=== PATIENT | male | born 1950 | race African-American/Black ===

== ENCOUNTER 2019-11-21 11:47 | Outpatient (REF) | payer MEDICARE, MEDICAID, SELFPAY ==
[2019-11-21 12:28] LABS: Hemoglobin 18.9 g/dl (14.0-18.0); Mean Corpuscular HGB Conc 32.6 g/dl (31.0-36.0); Mean Corpuscular Hemoglobin 29.1 pg (27.0-33.0); Mean Corpuscular Volume 89.2 fL (80-98); Mean Platelet Volume 9.7 fL (9.4-12.4); Platelet Count 300 X10*3/uL (160-400); Red Cell Distribution Width 15.8 % (11.0-16.0); White Blood Count 6.5 X10*3/uL (4.8-10.8)
[2019-11-21 12:39] LABS: Estimated Average Glucose 123 mg/dL; Hemoglobin A1c % 5.9 %
[2019-11-21 12:52] LABS: Alanine Aminotransferase 19 U/L (0-40); Albumin Level 4.3 g/dL (3.5-5.0); Alkaline Phosphatase 94 U/L (39-117); Anion Gap 11 (12-20); Aspartate Amino Transferase 24 U/L (5-37); Bilirubin Direct 0.2 mg/dL (0.0-0.5); Bilirubin Total 0.4 mg/dL (0.0-1.0); Blood Urea Nitrogen 10 mg/dL (9-16); Calcium 9.6 mg/dL (8.4-10.2); Carbon Dioxide 28 mmol/L (22-29); Chloride 99 mmol/L (96-108); Estimated Glomerular Filt Rate > 60; Glucose Random 102 mg/dL (60-115); Potassium 4.1 mmol/l (3.3-5.1); Sodium 134 mmol/L (135-145); Total Protein 8.2 g/dL (6.5-8.0)
== END 2019-11-21 11:48 | disposition home or self-care (01) ==
LOC: HO.LAB 11:47
PROVIDERS: Internal Medicine
DX: I10 Essential (primary) hypertension (principal); R20.2 Paresthesia of skin
CPT/HCPCS: 36415; 80048; 80076; 83036; 85027

== ENCOUNTER 2019-12-08 11:27 | Emergency (ER) | payer MEDICARE, MEDICAID, SELFPAY ==
[2019-12-08 11:36] VITALS: BP 191/101; PULSE 98; RESP 16; TEMP 37.1; O2SAT 97; BMI 22.3
--- NOTE | 2019-12-08 11:53 | ED_ITS ---
HPI - Male Genitourinary General Chief complaint: Urogenital-Male Stated complaint: RASH Time Seen by Provider: 12/08/19 11:41 Source: patient Mode of arrival: ambulatory Limitations: no limitations History of Present Illness HPI Narrative: Patient comes to emergency room complaining of a rash around the glans. Patient states it is not itchy, does not hurt. Patient states that he only has 1 sexual partner, but he is not sure if he has contracted any sexually transmitted diseases from her. Patient denies any penile discharge, no fever, no dysuria. Related Data Home Medications Medication Instructions Recorded Confirmed amlodipine 5 mg tablet 7.5 mg PO DAILY 11/21/19 ibuprofen 600 mg tablet 600 mg PO DAILY 11/21/19 risperidone 3 mg tablet 3 mg PO BEDTIME 11/21/19 trazodone 100 mg tablet 100 mg PO BEDTIME PRN 11/21/19 Previous Rx's Medication Instructions Recorded clotrimazole 1 applic TOPICAL TID #15 g 12/08/19 Allergies Allergy/AdvReac Type Severity Reaction Status Date / Time No Known Allergies Allergy Verified 11/21/19 09:14 [No Known Allergies*] Review of Systems Review of Systems: Constitutional : No Weight loss, No Fever, No Chills, No Night Sweats, No Fatigue, No Malaise ENT/Mouth : No Hearing loss, No Ear Pain, No Nasal Congestion, No Sinus Pain, No Hoarseness, No sore throat, No Rhinorrhea, No Swallowing Difficulty Eyes: No Eye Pain, No Swelling, No Redness, No Foreign Body, No Discharge, No Vision Changes Cardiovascular : No Chest Pain, No SOB, No Dyspnea on Exertion, No Orthopnea, No Edema, No Palpitations Respiratory : No Cough, No Sputum, No Wheezing, No Smoke Exposure, No Dyspnea Gastrointestinal : No Nausea, No Vomiting, No Diarrhea, No Constipation, No abdominal Pain, No Hematochezia, No Melena Genitourinary : No Dysuria, No Urinary Frequency, No Hematuria, No Urinary Incontinence, No Urgency, No Flank Pain, No Urinary Flow Changes, No Hesitancy Musculoskeletal : No joint pain, No Myalgias, No Joint Swelling Skin : rash around glands Neuro : No Weakness, No Numbness, No Paresthesias, No Loss of Consciousness, No Dizziness, No Headache Psych : No Anxiety/Panic, No Depression, No SI/HI/AH/VH, No Social Issues, Heme/Lymph: No Bruising, No Bleeding,No Lymphadenopathy Endocrine : No Polyuria, No Polydipsia, No Temperature Intolerance [facility] Past Medical History Medical History Hypertension Paresthesia of bilateral legs Surgical History History of back surgery History of oral surgery Family History Family History (Updated 11/21/19 @ 09:18 by Rosemary Barger [facility]) Father Chronic mental illness Depression Mother Depression Chronic mental illness Brother Stroke Sister S/P mastectomy Breast cancer screening by mammogram Social History Social History (Updated 11/21/19 @ 11:09 by Quincy Garcia William) Smoking Status: Former smoker Advance Directives: No Advance Directives Information Provided: No Physical Exam Vital Signs: Vital Signs: Vital Signs Temp Pulse Resp BP Pulse Ox 12/08/19 11:36 98.8 F 98 16 191/101 H 97 Body Mass Index 22.3 Appearance: Alert. Oriented X3. No acute distress. Eyes: Pupils equal, round and reactive to light. ENT: Pharynx normal. Neck: Normal inspection. Neck supple. No lymph nodes noted. No crepitus CVS: Normal heart rate and rhythm. Pulses normal. Normal S1 and S2 Respiratory: No respiratory distress. Breath sounds normal. No Wheezing. No rales Abdomen: Soft and nontender. No rigidity. No distention. good BS x4 : erythematous rash around the glans, no vesicles, no discharge from the tip of the penis Skin: Skin warm and dry. Normal skin color. Normal skin turgor. Extremities: No lower extremity edema. No lower extremity edema. No Lacerations. No Rash Neuro: Oriented X 3. No motor deficit. No sensory deficit. Moving all extermities. No slurred speech. Course Course Course Narrative: I discussed the physical exam with the patient, it seems that the patient's rash is likely a fungal infection. Urine will be sent for gonorrhea and chlamydia. Patient also complaining of bilateral 2nd toe pain. On physical exam, his toes are within normal limits, pedal pulses 5/5 bilaterally, no concern with vascular disease at the moment. Discharge Plan Discharge Clinical Impression: Candidiasis of penis Patient Disposition: Home, Self-Care Instructions: Yeast Infection (ED) Additional Instructions: Please follow-up with your primary care physician tomorrow. If you have any worsening or new symptoms, please return to the emergency room or call 911 Prescriptions: New clotrimazole 1 % cream 1 applic topical TID Qty: 15 RF: 0 No Action trazodone 100 mg tablet 100 mg PO BEDTIME PRNRF: 0 risperidone 3 mg tablet 3 mg PO BEDTIME RF: 0 amlodipine 5 mg tablet 7.5 mg PO DAILY RF: 0 ibuprofen 600 mg tablet 600 mg PO DAILY RF: 0
== END 2019-12-08 12:27 | disposition home or self-care (01) ==
PROVIDERS: Emergency Provider Emergency Medicine
DX: B37.42 Candidal balanitis (principal); N48.89 Other specified disorders of penis; Z87.891 Personal history of nicotine dependence; Z79.899 Other long term (current) drug therapy; Z20.2 Contact with and (suspected) exposure to infections with a predominantly sexual mode of transmission
CPT/HCPCS: 99283

== ENCOUNTER 2019-12-20 10:15 | Outpatient (REF) | payer MEDICARE, MEDICAID, SELFPAY | END 2019-12-20 10:16 | disposition home or self-care (01) | LOC: HO.BBR 10:15 | PROVIDERS: Visit Provider Internal Medicine Medical Oncology | DX: D75.1 Secondary polycythemia (principal) | CPT/HCPCS: 85014; 85018; 99195 ==

== ENCOUNTER 2020-01-17 10:55 | Outpatient (REF) | payer MEDICARE, MEDICAID, SELFPAY | END 2020-01-17 10:56 | disposition home or self-care (01) | LOC: HO.BBR 10:55 | PROVIDERS: Visit Provider Internal Medicine Medical Oncology | DX: D75.1 Secondary polycythemia (principal) | CPT/HCPCS: 36415; 85018; 99195 ==

== ENCOUNTER 2020-02-14 10:59 | Outpatient (REF) | payer MEDICARE, MEDICAID, SELFPAY | END 2020-02-14 11:00 | disposition home or self-care (01) | LOC: HO.BBR 10:59 | PROVIDERS: Visit Provider Internal Medicine Medical Oncology | DX: D75.1 Secondary polycythemia (principal) | CPT/HCPCS: 85014; 85018; 99195 ==

== ENCOUNTER → 2020-04-17 10:51 | Outpatient (BNVA) | payer MEDICARE, MEDICAID, SELFPAY | PROVIDERS: PCP Internal Medicine; Visit Provider Internal Medicine Cardiovascular Disease | DX: Z13.89 Encounter for screening for other disorder (principal) | CPT/HCPCS: 93005; 99202 ==

== ENCOUNTER 2020-04-19 10:47 | Outpatient (REF) | payer MEDICARE, MEDICAID, SELFPAY ==
[2020-04-19 11:52] LABS: Cholesterol 113 mg/dL; HDL Cholesterol 32 mg/dL; LDL Cholesterol Calculated 61 mg/dl; Triglycerides 103 mg/dL
== END 2020-04-19 10:48 | disposition home or self-care (01) ==
LOC: HO.LAB 10:47
PROVIDERS: PCP Internal Medicine; Visit Provider Internal Medicine Cardiovascular Disease
DX: I25.10 Atherosclerotic heart disease of native coronary artery without angina pectoris (principal)
CPT/HCPCS: 36415; 80061

== ENCOUNTER → 2020-05-09 11:17 | Outpatient (REF) | payer MEDICARE, MEDICAID, SELFPAY ==
--- NOTE | 2020-05-09 11:21 | CA_ITS ---
Transthoracic Echocardiogram Patient (Last, First, Middle): Sukhdeep Kan, Gender: Male Date of : 1950 Age: 69 Procedure Date: 05/09/2020 Procedure Type: Transthoracic Echocardiogram Location: OP Height: 177.8 cm Weight: 73.48 kg BSA: 1.91 m2 Heart Rate: bpm BP: 140 / 80 mmHg Manager Data Warehouse: [facility] Referring MD: Jered Simmons MD Mill Worker: Jered Simmons MD Symptoms: I42.9 - Cardiomyopathy, unspecified Study Quality: Fair ECG Rhythm: Sinus Conclusions: - Low normal LV systolic function of 50-55% Findings Left Ventricle Normal left ventricular cavity size. There is normal left ventricular wall thickness. The left ventricular systolic function is low normal. The visually estimated ejection fraction is between 50-55%. There is mild global hypokinesis. Diastolic function is normal for age.Peak global longitudinal strain is-12.9% which is reduced Tricuspid Valve Normal right atrial pressure. Venous The inferior vena cava is normal in size and collapses greater than 50% with inspiration. Prior Study Comparison No prior study available for comparison. Measurements M-Mode Liner Measurements Normals - Women/Men AOV Cusps: 2.20 1.5-2.6 cm/m2 2D Linear Measurements IVSd: 1.17 0.6-0.9/0.6-1.0 cm LVIDd: 5.12 3.9-5.3/4.2-5.9 cm LVIDd Index: 2.68 2.4-3.2/2.2-3.1 cm/m2 LVIDs: 3.39 2.0-3.6 cm LVPWd: 1.10 0.7-1.1 cm LA Diam: 3.70 2.7-3.8/3.0-4.0 cm LAIDs Index: 1.94 1.5-2.3 cm/m2 LV Mass: 280.14 67-162/88-224 g LV Mass Index: 146.67 43-95/49-115 g/m2 2D Systolic Function EF 4C: 49.50 >55% EF 2C: 54.10 >55% EF BiP: 51.10 >55% Mitral Valve MV Pk E: 0.90 MV PK A: 0.58 MV Decel Time: 245.00 E/A: 1.60 E'Lateral: 9.36 E'Medial: 4.79 E/E' Med: 18.80 E/E' Lat: 9.60 PHT: 72.00 MVA PHT: 3.06 Decel Preston: 3.68 Diastolic Function MV Pk E: 0.90 MV Pk A: 0.58 E/A: 1.60 E'Medial: 4.79 E/E' Med: 18.80 E' Laterial: 9.36 E/E' Lat: 9.60 Tricuspid Valve RA Press: 3.00 Updated in Other Vendor System with Status of Final Jered Simmons MD electronically signed on 05/10/2020 11:44:38 AM with status of Final
== END ==
LOC: HO.CARD 11:17
PROVIDERS: PCP Internal Medicine; Visit Provider Internal Medicine Cardiovascular Disease
DX: I25.10 Atherosclerotic heart disease of native coronary artery without angina pectoris (principal); I42.9 Cardiomyopathy, unspecified
CPT/HCPCS: 93005; 93308; 99202

== ENCOUNTER → 2020-05-30 10:37 | Outpatient (BNVA) | payer MEDICARE, MEDICAID, SELFPAY | PROVIDERS: PCP Internal Medicine; Visit Provider Nurse Practitioner Family ==

== ENCOUNTER → 2020-06-10 10:10 | Outpatient (BNVA) | payer MEDICARE, MEDICAID, SELFPAY | PROVIDERS: PCP Internal Medicine; Referring Provider Internal Medicine; Visit Provider Internal Medicine Cardiovascular Disease | DX: I25.5 Ischemic cardiomyopathy (principal); I25.10 Atherosclerotic heart disease of native coronary artery without angina pectoris; Z87.891 Personal history of nicotine dependence; Z79.899 Other long term (current) drug therapy | CPT/HCPCS: 99212 ==

== ENCOUNTER → 2020-12-23 10:21 | Outpatient (BNVA) | payer MEDICARE, MEDICAID, SELFPAY | PROVIDERS: PCP Internal Medicine; Referring Provider Internal Medicine; Visit Provider Internal Medicine Cardiovascular Disease | DX: I25.10 Atherosclerotic heart disease of native coronary artery without angina pectoris (principal); I10 Essential (primary) hypertension | CPT/HCPCS: 93005; 99212 ==

== ENCOUNTER → 2021-01-06 10:03 | Outpatient (BNVA) | payer MEDICARE, MEDICAID, SELFPAY | PROVIDERS: PCP Internal Medicine; Referring Provider Internal Medicine; Visit Provider Internal Medicine Cardiovascular Disease ==

== ENCOUNTER → 2021-06-11 10:22 | Outpatient (REF) | payer MEDICARE, MEDICAID, SELFPAY ==
--- NOTE | 2021-06-11 10:25 | CA_ITS ---
Transthoracic Echocardiogram Patient (Last, First, Middle): Sukhdeep Kan, Gender: Male Date of : 1950 Age: 70 Procedure Date: 06/11/2021 Procedure Type: Transthoracic Echocardiogram Location: OP Height: 177.8 cm Weight: 73.48 kg BSA: 1.91 m2 Heart Rate: bpm BP: 195 / 80 mmHg Voice Network Administrator: SHERRI Referring MD: Jered Simmons MD Operations Officer Afloat: Jered Simmons MD Symptoms: I25.10 - Atherosclerotic heart disease of [place] coronary... Study Quality: Good ECG Rhythm: Sinus Conclusions: - 1. Normal LV systolic function with normal filling pressures 2. Mildly dilated left atrium 3. Normal cardiac valvular Doppler 4. Normal RV systolic pressure 5. No gross pericardial effusion Findings Left Ventricle Normal left ventricular size, thickness, and systolic function. The visually estimated ejection fraction is between 60-65%. Spectral Doppler is indicative of a normal filling pattern. There is mild septal asymmetric hypertrophy. Peak GLS is - 15.5%, which is reduced. Right Ventricle Normal right ventricular cavity size and systolic function. Atria The left atrium is mildly dilated. There is no evidence of interatrial shunt. The right atrium is normal in size. Aortic Valve Normal aortic valve structure and function. There is no aortic valve stenosis. There is no aortic valve regurgitation. Mitral Valve Normal mitral valve structure and function. There is trace mitral valve regurgitation. There is no mitral valve stenosis. Pulmonic Valve The pulmonic valve is likely normal. There is trace to mild pulmonic valve regurgitation. Tricuspid Valve Likely normal tricuspid valve structure and function. There is trace tricuspid valve regurgitation. The right ventricular systolic pressure is normal. Normal right atrial pressure. There is no evidence of pulmonary hypertension. Great Vessels All visible segments of the aorta are normal in size. The pulmonary artery was not well visualized. Venous The inferior vena cava is normal in size and collapses greater than 50% with inspiration. Pericardium/Pleural There is no evidence of pericardial effusion. Prior Study Comparison Changes noted compared to prior study dated: 05/09/2020. LV systolic function is normalized Measurements 2D Linear Measurements IVSd: 1.38 0.6-0.9/0.6-1.0 cm LVIDd: 5.17 3.9-5.3/4.2-5.9 cm LVIDd Index: 2.71 2.4-3.2/2.2-3.1 cm/m2 LVIDs: 3.55 2.0-3.6 cm LVPWd: 0.88 0.7-1.1 cm LA Diam: 4.10 2.7-3.8/3.0-4.0 cm LAIDs Index: 2.15 1.5-2.3 cm/m2 LV Mass: 282.69 67-162/88-224 g LV Mass Index: 148.01 43-95/49-115 g/m2 LVOT Diam: 2.20 3.0+(-)1.3 cm 2D Systolic Function EF 4C: 63.90 >55% Mitral Valve MV Pk E: 0.76 MV PK A: 0.60 MV Decel Time: 179.00 E/A: 1.30 E'Lateral: 9.68 E'Medial: 6.53 E/E' Med: 11.70 E/E' Lat: 7.90 PHT: 52.00 MVA PHT: 4.23 Decel Sharp: 4.27 Aortic Valve AoV Pk Adriel: 1.32 AoV Mn Adriel: 0.99 AoV VTI: 0.28 AoV Pk Grad: 7.00 Aov Mn Grad: 4.00 CAN Cont.VTI: 3.11 LVOT LVOT Pk Adriel: 1.11 LVOT Mn Adriel: 0.71 LVOT VTI: 0.23 LVOT Pk Grad: 5.00 LVOT Mn Grad: 3.00 LVOT Diam: 2.20 LVOT Area: 3.80 Diastolic Function MV Pk E: 0.76 MV Pk A: 0.60 E/A: 1.30 E'Medial: 6.53 E/E' Med: 11.70 E' Laterial: 9.68 E/E' Lat: 7.90 Right Ventricle TAPSE (mm): 25.30 TVS' Adriel: 11.90 Tricuspid Valve TR Pk Adriel: 1.81 TR Pk Grad: 13.00 RA Press: 3.00 RVSP: 16.00 Great Vessels Aorta Sinus of Valsalva: 2.73 2.0-3.[address] Ridge: 2.34 1.7-3.4 cm Ao Asc: 2.90 2.1-3.4 cm Pulmonary Veins Pulm Vein S/D 1.40 Pulmonary Valve PV Pk Adriel: 1.66 Peak PV Grad: 11.00 Updated in Other Vendor System with Status of Final Jered Simmons MD electronically signed on 06/11/2021 12:30:06 PM with status of Final
== END ==
LOC: HO.CARD 10:22
PROVIDERS: PCP Internal Medicine; Visit Provider Internal Medicine Cardiovascular Disease
DX: I25.10 Atherosclerotic heart disease of native coronary artery without angina pectoris (principal); I25.5 Ischemic cardiomyopathy
CPT/HCPCS: 93306; 93356

== ENCOUNTER → 2021-06-23 11:06 | Outpatient (BNVA) | payer MEDICARE, MEDICAID, SELFPAY | PROVIDERS: PCP Internal Medicine; Referring Provider Internal Medicine; Visit Provider Internal Medicine Cardiovascular Disease | DX: I25.10 Atherosclerotic heart disease of native coronary artery without angina pectoris (principal); I10 Essential (primary) hypertension | CPT/HCPCS: 99212 ==

== ENCOUNTER → 2021-07-08 15:19 | Outpatient (BNVA) | payer MEDICARE, MEDICAID, SELFPAY | PROVIDERS: PCP Internal Medicine; Referring Provider Internal Medicine; Visit Provider Internal Medicine Cardiovascular Disease | DX: Z13.89 Encounter for screening for other disorder (principal) ==

== ENCOUNTER → 2021-12-16 11:04 | Outpatient (BNVA) | payer MEDICARE, MEDICAID, SELFPAY | PROVIDERS: PCP Registered Nurse; Referring Provider Internal Medicine; Visit Provider Internal Medicine Cardiovascular Disease | DX: I25.10 Atherosclerotic heart disease of native coronary artery without angina pectoris (principal); R09.89 Other specified symptoms and signs involving the circulatory and respiratory systems | CPT/HCPCS: 93005; 99212 ==

== ENCOUNTER 2022-05-26 21:49 | Emergency (ER) | payer MEDICARE, MEDICAID, SELFPAY ==
--- NOTE | ~2022-05-26 | US_ITS ---
EXAMINATION: US SOFT TISSUE NECK CLINICAL INFORMATION: Enlarged, nonpainful lymph node at left juxta ankle COMPARISON: CT 07/17/2019 TECHNIQUE: Sonographic evaluation was performed in the region of clinical concern inferior to the left jaw. FINDINGS: In the area of clinical concern inferior to the left jaw there is a structure measuring 4.0 x 5.1 x 2.3 cm with mild internal color flow and some internal streaky hypoechoic regions. When compared to prior imaging, this may represent a prominent submandibular gland. No additional focal abnormality is seen in this region. US/US soft tiss head and/or neck IMPRESSION: Structure inferior to the left jaw which may represent a prominent submandibular gland in the setting of sialoadenitis. Clinical follow-up is recommended; if this persists, further workup with contrast-enhanced neck CT would be recommended.
[2022-05-26 21:50] VITALS: BP 178/91; PULSE 59; RESP 18; TEMP 36.1; O2SAT 96; BMI 22.1
[2022-05-26 23:46] LABS: Appearance Urine Clear; Color Urine Yellow; Glucose Urine UA Negative (Negative); Leukocyte Esterase Urine Negative (Negative); Nitrite Urine Negative (Negative); Specific Gravity - Urine <= 1.005 (1.005-1.025); Urine Blood Negative (Negative); Urine Ketones Negative (Negative); Urine Protein Negative (Neg-Trace)
--- NOTE | 2022-05-27 01:17 | ED.GENADULT ---
HPI - General Adult General Chief complaint: Dental/Oral Stated complaint: Swelling in neck Time Seen by Provider: 05/27/22 00:06 Source: patient Mode of arrival: ambulatory History of Present Illness HPI narrative: 71-year-old male who presents with noticing a swelling to the left side of his neck this evening while he was eating. Patient denies any difficulty with swallowing or breathing but states that when he swallows he feels something. He denies any fevers, chills and denies any unexplained weight loss or history of cigarette smoking. He denies any ear pain or dental pain. Related Data Previous Rx's Medication Instructions Recorded folic acid 1 mg tablet 1 mg PO DAILY #90 tabs 05/09/20 risperidone 3 mg tablet 3 mg PO BEDTIME #90 tabs 05/09/20 trazodone 100 mg tablet 100 mg PO BEDTIME #90 tabs 05/09/20 blood pressure monitor (Blood #1 ea 07/30/20 Pressure Kit) rosuvastatin 40 mg tablet 40 mg PO DAILY #90 tabs 10/23/21 carvedilol 12.5 mg tablet 12.5 mg PO BID #180 tabs 11/04/21 amlodipine 5 mg tablet 5 mg PO BID #180 tabs 12/16/21 aspirin 81 mg tablet,delayed 81 mg PO DAILY #90 tabs 12/16/21 release (Ecotrin Low Strength) losartan 50 mg tablet 50 mg PO BID #180 tabs 12/16/21 Allergies Allergy/AdvReac Type Severity Reaction Status Date / Time No Known Allergies Allergy Verified 12/16/21 11:11 [No Known Allergies*] Review of Systems Review of Systems: Pertinent positives and negatives as stated in HPI [facility] Past Medical History Source: nursing notes reviewed Medical History COVID-19 Hypercholesterolemia Hypertension Ischemic cardiomyopathy Paresthesia of bilateral legs Screening for diabetes mellitus Screening for prostate cancer ST elevation (STEMI) myocardial infarction involving left anterior descending coronary artery Uncontrolled hypertension Surgical History History of back surgery History of colonoscopy History of oral surgery Stented coronary artery Family History Family History Father Chronic mental illness Depression Mother Depression Chronic mental illness Brother Stroke Sister S/P mastectomy Breast cancer screening by mammogram Social History Social History Household Members: None Housing: Apartment Are you a primary transitional care liaison to a significant other at home: No Do you presently have visiting nurse or other home services: No Alcohol intake: never Patient Tobacco Use Status: Former Tobacco user Quit Date: 2014 Years Smoked: 50 +/- Substance Use Type: Marijuana Advance Directives: No Advance Directives Information Provided: Yes service: No Current occupational status: unemployed Physical Exam ED Vital Signs: Vital Signs - 24 hr 05/26/22 21:50 Temperature 96.9 F Pulse Rate 59 Respiratory Rate 18 Blood Pressure 178/91 H Pulse Oximetry 96 Oxygen Delivery Method Room Air BMI result Body Mass Index 22.1 VITAL SIGNS: Reviewed. GENERAL: Well developed, well nourished, in no acute distress. HEAD: Normocephalic/atraumatic EYES: PERRLA, EOMI EARS: Ext canals without abnormality, TMs non-bulging and non-erythematous NOSE: Nares patent bilateral OROPHARYNX: no oral lesions noted, posterior pharynx clear and no noted dental caries, no trismus NECK: Supple, but there is an approximate 3.5 cm, nonfluctuant, nontender enlarged lymph node just inferior to the left angle of the jaw LUNGS: Normal breath sounds. No adventitious sounds or accessory muscle use. SpO2<96> CARDIOVASCULAR: Regular rate and rhythm without noted murmurs ABDOMEN: Soft, non-tender, non-distended with bowel sounds. SKIN: Inspection of the skin reveals no rashes NEUROLOGIC: Alert and oriented x 4. Strength and sensation to light touch were grossly intact x 4. Medical Decision Making Medical Decision Making MDM Narrative: 71-year-old male with history and clinical presentation of a nontender enlarged lymph node of unclear etiology. I ordered an ultrasound to better characterize and patient does not wish to wait around for the results and states that he will follow-up with his primary care provider. He is otherwise hemodynamically stable. Differential Diagnosis Please see the discussion above Lab Data Labs: Lab Results 05/26/22 Range/Units 23:39 Urine Color Yellow Urine Appearance Clear Urine pH 7.0 (5.0-9.0) Ur Specific [place] <= 1.005 (1.005-1.025) Urine Protein Negative (Neg-Trace) mg/dL Urine Glucose (UA) Negative (Negative) mg/dL Urine Ketones Negative (Negative) mg/dL Urine Blood Negative (Negative) Urine Nitrite Negative (Negative) Ur Leukocyte Esterase Negative (Negative) Radiology Impression Radiologist Impression: My interpretation is in agreement with radiology's impression of the imaging study. Discharge Plan Discharge Clinical Impression: Enlarged lymph node in neck Patient Disposition: Home, Self-Care Instructions: Lymphadenopathy (ED) Additional Instructions: Resume all home medications as prescribed. Follow-up with your primary care provider in the next 1-2 days. Return to the ER for any worsening symptoms. Prescriptions: No Action trazodone 100 mg tablet 100 mg PO BEDTIME Qty: 90 1RF folic acid 1 mg tablet 1 mg PO DAILY Qty: 90 1RF risperidone 3 mg tablet 3 mg PO BEDTIME Qty: 90 1RF rosuvastatin 40 mg tablet 40 mg PO DAILY Qty: 90 0RF carvedilol 12.5 mg tablet 12.5 mg PO BID Qty: 180 3RF (DME) blood pressure monitor [Blood Pressure Kit] Kit See Rx Instructions .ROUTE .MEDSUPPLY Qty: 1 0RF Rx Instructions: As directed amlodipine 5 mg tablet 5 mg PO BID Qty: 180 1RF losartan 50 mg tablet 50 mg PO BID Qty: 180 1RF aspirin [Ecotrin Low Strength] 81 mg tablet,delayed release (DR/EC) 81 mg PO DAILY Qty: 90 1RF Referrals: Niki Walker FNP [Primary Care Provider] -
[2022-05-27 01:28] VITALS: BP 169/72; PULSE 53; RESP 16; O2SAT 98
--- NOTE | 2022-05-27 01:34 | PC.NURSE ---
Reviewed discharge instructions with pt, pt verbalized understanding, pt able to speak in full sentences, no facial swelling, no sign of distress.
== END 2022-05-27 01:37 | disposition home or self-care (01) ==
PROVIDERS: Emergency Medicine; Emergency Provider Student in an Organized Health Care Education/Training Program; PCP Registered Nurse
DX: M54.2 Cervicalgia (principal); R59.9 Enlarged lymph nodes, unspecified; Z79.899 Other long term (current) drug therapy; Z87.891 Personal history of nicotine dependence
CPT/HCPCS: 76536; 81003; 99284

== ENCOUNTER → 2022-06-04 12:43 | Outpatient (REF) | payer MEDICARE, MEDICAID, SELFPAY ==
--- NOTE | 2022-06-04 12:45 | CA_ITS ---
Transthoracic Echocardiogram Patient (Last, First, Middle): Sukhdeep Kan, Gender: Male Date of : 1950 Age: 71 Procedure Date: 06/04/2022 Procedure Type: Transthoracic Echocardiogram Location: OP Height: 177.8 cm Weight: 72.58 kg BSA: 1.90 m2 Heart Rate: bpm BP: 122 / 68 mmHg Video Library Assistant: TO Referring MD: Jered Simmons MD Medical Collector: Jered Simmons MD Symptoms: I25.10 - Atherosclerotic heart disease of [place] coronary artery without... Study Quality: Adequate ECG Rhythm: Sinus Conclusions: - 1. Normal LV ejection fraction at 60 65% 2. Normal cardiac valvular Doppler 3. Normal RV systolic pressure 4. No gross pericardial effusion Findings Left Ventricle Normal left ventricular size, thickness, and systolic function. The visually estimated ejection fraction is between 60-65%. Spectral Doppler is indicative of a normal filling pattern. Peak GLS is -16.2%, which is mildly reduced. Right Ventricle Normal right ventricular cavity size and systolic function. Atria Both atria are normal in size. There is no evidence of interatrial shunt. Aortic Valve Normal aortic valve structure and function. There is no aortic valve stenosis. There is no aortic valve regurgitation. Mitral Valve There is mild anterior and posterior mitral leaflet thickening. There is trace mitral valve regurgitation. There is no mitral valve stenosis. Pulmonic Valve The pulmonic valve is likely normal. Tricuspid Valve Normal tricuspid valve structure. There is trace tricuspid valve regurgitation. The right ventricular systolic pressure is normal. The right ventricular systolic pressure is 21 mmHg. Normal right atrial pressure. There is no evidence of pulmonary hypertension. Great Vessels All visible segments of the aorta are normal in size. The pulmonary artery was not well visualized. Venous The inferior vena cava is normal in size and collapses greater than 50% with inspiration. Measurements 2D Linear Measurements IVSd: 1.29 0.6-0.9/0.6-1.0 cm LVIDd: 5.19 3.9-5.3/4.2-5.9 cm LVIDd Index: 2.73 2.4-3.2/2.2-3.1 cm/m2 LVIDs: 3.63 2.0-3.6 cm LVPWd: 0.80 0.7-1.1 cm LA Diam: 3.60 2.7-3.8/3.0-4.0 cm LAIDs Index: 1.89 1.5-2.3 cm/m2 LV Mass: 255.38 67-162/88-224 g LV Mass Index: 134.41 43-95/49-115 g/m2 LVOT Diam: 2.00 3.0+(-)1.3 cm 2D Systolic Function EF 4C: 63.30 >55% EF 2C: 57.80 >55% EF BiP: 61.70 >55% Mitral Valve MV Pk E: 0.62 MV PK A: 0.56 MV Decel Time: 274.00 E/A: 1.10 E'Lateral: 6.96 E'Medial: 6.31 E/E' Med: 9.80 E/E' Lat: 8.90 PHT: 80.00 MVA PHT: 2.75 Decel [place]: 2.25 Aortic Valve AoV Pk Adriel: 1.32 AoV Mn Adriel: 0.85 AoV VTI: 0.26 AoV Pk Grad: 7.00 Aov Mn Grad: 3.00 CAN Cont.VTI: 2.67 LVOT LVOT Pk Adreil: 1.17 LVOT Mn Adriel: 0.64 LVOT VTI: 0.22 LVOT Pk Grad: 5.00 LVOT Mn Grad: 2.00 LVOT Diam: 2.00 LVOT Area: 3.14 Diastolic Function MV Pk E: 0.62 MV Pk A: 0.56 E/A: 1.10 E'Medial: 6.31 E/E' Med: 9.80 E' Laterial: 6.96 E/E' Lat: 8.90 Right Ventricle TAPSE (mm): 21.50 TVS' Adriel: 12.00 Tricuspid Valve TR Pk Adriel: 2.13 TR Pk Grad: 18.00 RA Press: 3.00 RVSP: 21.00 Great Vessels Aorta Sinus of Valsalva: 2.99 2.0-3.[address] Ridge: 2.22 1.7-3.4 cm Ao Asc: 3.10 2.1-3.4 cm Updated in Other Vendor System with Status of Final Jered Simmons MD electronically signed on 06/05/2022 11:05:30 AM with status of Final
== END ==
LOC: HO.CARD 12:43
PROVIDERS: PCP Registered Nurse; Visit Provider Internal Medicine Cardiovascular Disease
DX: I25.10 Atherosclerotic heart disease of native coronary artery without angina pectoris (principal)
CPT/HCPCS: 93306; 93356

== ENCOUNTER → 2022-06-16 10:49 | Outpatient (BNVA) | payer MEDICARE, MEDICAID, SELFPAY | PROVIDERS: PCP Registered Nurse; Referring Provider Registered Nurse; Visit Provider Internal Medicine Cardiovascular Disease | DX: I25.10 Atherosclerotic heart disease of native coronary artery without angina pectoris (principal); I10 Essential (primary) hypertension | CPT/HCPCS: 99212 ==

== ENCOUNTER 2022-07-09 13:10 | Outpatient (REF) | payer MEDICARE, MEDICAID, SELFPAY ==
--- NOTE | ~2022-07-09 | CT_ITS ---
EXAMINATION: CT SOFT TISSUE NECK WITH CONTRAST CLINICAL INFORMATION: Neck mass. COMPARISON: Neck ultrasound May 27, 2022. TECHNIQUE: Following the administration of 100 mL of Omnipaque 300 intravenous contrast, helical imaging was performed in the axial plane with generation of coronal and sagittal reformatted images. This CT examination was performed using dose optimization techniques as appropriate, variously including the following: *Automated exposure control *Adjustment of mA and/or kV according to patient size (this includes techniques or standardized protocols for targeted exams where dose is matched to indication/reason for exam; i.e. extremities or head) *Use of iterative reconstruction technique DLP: 321 mGy-cm FINDINGS: A skin marker was placed in the left submandibular region. The left submandibular gland demonstrates mild hyperenhancement with edema and minimal surrounding fat stranding. There is no dilatation of the submandibular duct and no sialolith is seen within the gland or along the expected course of the Cesar's duct including along the floor of mouth. Right submandibular gland appears normal. Both parotid glands appear normal. The pharyngeal and laryngeal contours appear normal. No mass is seen. There are no enlarged cervical chain lymph nodes. The imaged intracranial contents are unremarkable. Degenerative changes are seen within the cervical spine. Advanced emphysematous changes are seen throughout the lungs major neck vessels are patent. Atheromatous changes are noted in the major neck arteries and in the coronary arteries CT/CT soft tissue neck w IV con IMPRESSION: 1. Mild edema and hyperenhancement of the left submandibular gland compatible with acute sialoadenitis. No evidence of submandibular duct dilatation or sialolith. No enlarged cervical chain lymph nodes. 2. Advanced emphysematous changes in the lungs.
[2022-07-09] MEDS: iohexoL 350 MG/ML 100 ML INFUS..BTL 60 ML IV (13:42)
[2022-07-10 06:53] LABS: Creatinine POC 0.9 mg/dL (0.5-1.4); GFR POC > 60
== END 2022-07-09 13:11 | disposition home or self-care (01) ==
LOC: HO.CT 13:10
PROVIDERS: PCP Registered Nurse; Visit Provider Family Medicine
DX: R22.1 Localized swelling, mass and lump, neck (principal)
CPT/HCPCS: 70491; 82565; Q9967

== ENCOUNTER 2022-12-22 12:02 | Outpatient (REF) | payer MEDICARE, MEDICAID, SELFPAY ==
[2022-12-22 12:23] LABS: MANUAL DIFF FLAG NO
[2022-12-22 12:47] LABS: Basophils Percent Auto 0.3 % (0-2); Eosinophils Absolute Auto 0.1 X10*3/uL (0.0-0.4); Eosinophils Percent Auto 1.2 % (0-4); Hematocrit 43.9 % (42.0-52.0); Hemoglobin 13.9 g/dl (14.0-18.0); Imm Gran Abs Auto 0.03 X10*3/uL (0.00-0.03); Imm Gran Pct Auto 0.5 % (0.0-0.4); Lymphocytes Absolute Auto 2.2 X10*3/uL (1.2-4.9); Lymphocytes Percent Auto 36.3 % (20-40); Mean Corpuscular HGB Conc 31.7 g/dl (31.0-36.0); Mean Corpuscular Volume 88.5 fL (80.0-98.0); Mean Platelet Volume 11.3 fL (9.4-12.4); Monocytes Absolute Auto 0.7 X10*3/uL (0.1-1.2); Monocytes Percent Auto 11.7 % (2-11); Platelet Count 228 X10*3/uL (160-400); Red Blood Count 4.96 X10*6/uL (4.60-5.80); Red Cell Distribution Width 13.2 % (11.0-16.0); White Blood Count 5.9 X10*3/uL (4.8-10.8)
[2022-12-22 12:53] LABS: INTERNATIONAL NORM RATIO 1.1 (0.9-1.1); Prothrombin Time 13.1 SEC (11.1-13.3)
[2022-12-22 12:54] LABS: Estimated Average Glucose 120 mg/dL; Hemoglobin A1c % 5.8 % (<6.0)
[2022-12-22 12:59] LABS: Cholesterol 202 mg/dL (<200); HDL Cholesterol 30 mg/dL (>40); LDL Cholesterol Calculated 147 mg/dL (<100); Triglycerides 129 mg/dL (<150)
[2022-12-22 13:00] LABS: Alanine Aminotransferase 9 U/L (0-40); Alkaline Phosphatase 84 U/L (39-117); Aspartate Amino Transferase 15 U/L (5-37); Bilirubin Direct 0.1 mg/dL (0.0-0.5); Bilirubin Total 0.3 mg/dL (0.0-1.0); Total Protein 7.8 g/dL (6.5-8.0)
[2022-12-22 13:17] LABS: HIV AB/AG Nonreactive (Nonreactive); HIV Num 1 0.06 S/CO (0.00-0.99)
[2022-12-23 18:04] LABS: HCV Log PCR <1.18 NOT DETECTED Log IU/mL (NOT DETECTED); HepC Viral Load <15 NOT DETECTED IU/mL (NOT DETECTED)
[2022-12-24 07:44] LABS: RPR Rapid Plasma Reagin NON-REACTIVE (NON-REACTIVE)
[2022-12-25 12:38] LABS: Alpha Fetoprotein 2.7 ng/mL (<6.1)
[2022-12-28 08:03] LABS: FIB-ALT 8 U/L (9-46); FIB-Alpha-2-Macroglobulin 446 mg/dL (106-279); FIB-Apolipoprotein A1 106 mg/dL (94-176); FIB-GGT 30 U/L (3-70); FIB-Haptoglobin 165 mg/dL (43-212); FIB-Total Bilirubin 0.2 mg/dL (0.2-1.2); Liver Fibrosis Score 0.63; Liver Fibrosis Stage F3; Nec Inflam Act Grade A0; Nec Inflam Act Score 0.03
== END 2022-12-22 12:03 | disposition home or self-care (01) ==
LOC: HO.LAB 12:02
PROVIDERS: PCP Registered Nurse; Visit Provider Internal Medicine
DX: Z00.00 Encounter for general adult medical examination without abnormal findings (principal); D75.1 Secondary polycythemia; K74.00 Hepatic fibrosis, unspecified; Z86.19 Personal history of other infectious and parasitic diseases; Z11.3 Encounter for screening for infections with a predominantly sexual mode of transmission
CPT/HCPCS: 36415; 80061; 80076; 81596; 82105; 83036; 85025; 85610; 86592; 87389; 87522

== ENCOUNTER 2023-02-02 13:10 | Outpatient (REF) | payer MEDICARE, MEDICAID, SELFPAY ==
--- NOTE | ~2023-02-02 | US_ITS ---
EXAMINATION: US COMPLETE ABDOMEN WITH LIVER ELASTOGRAPHY CLINICAL INFORMATION: Liver fibrosis; hepatitis C. COMPARISON: Abdominal ultrasound dated 08/17/2018. TECHNIQUE: Real-time imaging of the abdominal viscera. Noninvasive ultrasound liver fibrosis assessment is performed using Tina ElastPQ point quantification shear wave elastography (2D-SWE) with a C5-2 MHz transducer. Multiple elastography samples are obtained. FINDINGS: PANCREAS: Normal. The visualized pancreatic head and body are normal in appearance. The remainder of the pancreas is obscured from visualization by the overlying bowel gas. ABDOMINAL AORTA: The proximal, middle, and distal aortic segments are normal in caliber. INFERIOR VENA CAVA: Visualized portions are normal. LIVER: Normal. The liver demonstrates normal size, contour and echogenicity. No focal lesion or intrahepatic biliary duct dilatation. The right lobe measures 13.7 cm in length. The left lobe measures 10.1 cm in length. Portal flow is towards the liver (hepatopetal). Shear wave liver elastography median stiffness is 1.55 m/s (reference: normal median stiffness is 1.3 m/s or less). IQR/median stiffness to assess sampling precision is 0.13 (reference: good quality data set is IQR/median stiffness of 0.15 or less). GALLBLADDER: Normal. The gallbladder is physiologically distended without evidence of stones, sludge, polyps, wall thickening or pericholecystic fluid. COMMON BILE DUCT: Increased in caliber, measuring 1.0 cm in diameter. RIGHT KIDNEY: Normal. No hydronephrosis. No renal calculi or focal parenchymal lesions. The kidney measures 10.3 cm in maximum dimension. LEFT KIDNEY: Normal. No hydronephrosis. No renal calculi or focal parenchymal lesions. The kidney measures 11.0 cm in maximum dimension. SPLEEN: Normal. The spleen measures 8.2 cm in maximum dimension. FREE FLUID: None. US/US abdomen comp w elastography IMPRESSION: 1. There is mild common bile duct distention. No choledocholith or pancreatic head mass is noted. No intrahepatic biliary ductal dilatation is seen. If of continued clinical concern, this can be further evaluated with abdominal MRI/MRCP. 2. Liver elastography: In the absence of other known clinical signs, measurements rule out compensated advanced chronic liver disease. If there are known clinical signs, further testing may be needed for confirmation. REFERENCE: Society of Radiologists in Ultrasound Liver Stiffness Thresholds (2020): LIVER STIFFNESS THRESHOLDS: *Liver Stiffness equal or less than 1.3 m/s: High probability of being normal. *Liver Stiffness less than 1.7 m/s: In the absence of other known clinical signs, rules out compensated advanced chronic liver disease. *Liver Stiffness 1.7-2.1 m/s: Suggestive of compensated advanced chronic liver disease but need further test for confirmation. *Liver Stiffness over 2.1 m/s: Rules in compensated advanced chronic liver disease. *Liver Stiffness over 2.4 m/s: Suggestive of clinically significant portal hypertension. QUALITY OF DATA SET: *IQR/Median value equal or less than 0.15 implies a quality data set. *IQR/Median value over 0.15 implies a poor quality data set. SIGNIFICANT CHANGE FROM PRIOR EXAM: Significant change if liver stiffness measurement is 10% or greater from prior exam. OTHER CONSIDERATIONS: The stage of liver fibrosis may be overestimated in the setting of acute hepatitis, liver inflammation, elevated liver function tests, hepatic vascular congestion, obstructive cholestasis, non-fasting state, and infiltrative diseases such as amyloidosis and lymphoma. In some patients with NAFLD, the liver stiffness thresholds for compensated advanced chronic liver disease may be lower. In causes other than viral hepatitis and NAFLD, liver stiffness thresholds are not well established.
== END 2023-02-02 13:11 | disposition home or self-care (01) ==
LOC: HO.US 13:10
PROVIDERS: PCP Registered Nurse; Visit Provider Internal Medicine
DX: K74.00 Hepatic fibrosis, unspecified (principal); Z86.19 Personal history of other infectious and parasitic diseases
CPT/HCPCS: 76705; 76981

== ENCOUNTER 2023-03-17 09:12 | Day surgery (SDC) | payer MEDICARE, MEDICAID, SELFPAY ==
[2023-03-15 11:51] VITALS: BMI 23.7
--- NOTE | 2023-03-16 09:51 | P.CONAN_ITS ---
Documented by User: Maxine Prescott NP 03/16/23 09:53 HPI - Anesthesia Eval Consult details Narrative: 72yo M for Colonoscopy Follows [facility] Cardiology. Last office visit 06/2022. Stable for 1 year f/u: Coronary artery disease with prior STEMI of the LAD territory with ischemic cardiomyopathy. However LV systolic function normalized after revascularization. [facility] Active Problems Active Problems: All Active Problems (Updated 03/15/23 @ 11:44 by Ema Beltran RN) Labile blood pressure (Acute) Adult general medical exam (Acute) Insomnia (Acute) Coronary artery disease (Acute) Erythrocytosis (Acute) Screening for prostate cancer (Acute) Screening for diabetes mellitus (Acute) Hypercholesterolemia (Acute) Hypertension (Acute) Past Medical History Medical History Liver fibrosis Personal history of COVID-19 (~2020) Hx of hepatitis C Uncontrolled hypertension Screening for prostate cancer Screening for diabetes mellitus COVID-[address] elevation (STEMI) myocardial infarction involving left anterior descending coronary artery Hypercholesterolemia Paresthesia of bilateral legs Hypertension Family History Family History Father Chronic mental illness Depression Mother Depression Chronic mental illness Brother Stroke Sister S/P mastectomy Breast cancer screening by mammogram Surgical History Surgical History Hx of right knee surgery H/O heart artery stent Stented coronary artery History of colonoscopy History of back surgery History of oral surgery Social History Social History Household Members: None Housing: Apartment Are you a primary respiratory care technician to a significant other at home: No Do you presently have visiting nurse or other home services: No Alcohol intake: never Patient Tobacco Use Status: Former Tobacco user Quit Date: 8 yrs ago Years Smoked: 50 +/- Use of substances other than those prescribed or required for medical reasons: Yes Substance Use Type: Marijuana Substance Use Frequency: Occasionally Are you DNR?: No Advance Directives: No Advance Directives Information Provided: Yes service: No Current occupational status: unemployed Meds Allergies Allergy/AdvReac Type Severity Reaction Status Date / Time No Known Allergies Allergy Verified 03/17/23 10:01 [No Known Allergies*] Exam Height,Weight and Vital Signs: Height 5 ft 10 in Weight 74.843 kg Pertinent Lab Results Pertinent Lab Results: Laboratory Tests 12/22/22 12:21 WBC 5.9 Hgb 13.9 L Hct 43.9 Plt Count 228 Narrative Narrative: ECHO 05/2022 Conclusions: - 1. Normal LV ejection fraction at 60 65% 2. Normal cardiac valvular Doppler 3. Normal RV systolic pressure 4. No gross pericardial effusion EKG 12/2021 SB @ 55 Assessment and Plan Assessment Anesthesia Assessment: Chart Reviewed Documented by User: Sonu Redding MD 03/17/23 11:04 PMFSH Past Medical History Medical History Liver fibrosis Personal history of COVID-19 (~2020) Hx of hepatitis C Uncontrolled hypertension Screening for prostate cancer Screening for diabetes mellitus COVID-[address] elevation (STEMI) myocardial infarction involving left anterior descending coronary artery Hypercholesterolemia Paresthesia of bilateral legs Hypertension Narrative: No problems since he had his coronary stent. Family History Family History Father Chronic mental illness Depression Mother Depression Chronic mental illness Brother Stroke Sister S/P mastectomy Breast cancer screening by mammogram Family history of problems with anesthesia: No Surgical History Surgical History Hx of right knee surgery H/O heart artery stent Stented coronary artery History of colonoscopy History of back surgery History of oral surgery History of Problems with Anesthesia: No Social History Social History Household Members: None Housing: Apartment Are you a primary respiratory care technician to a significant other at home: No Do you presently have visiting nurse or other home services: No Alcohol intake: never Patient Tobacco Use Status: Former Tobacco user Quit Date: 8 yrs ago Years Smoked: 50 +/- Use of substances other than those prescribed or required for medical reasons: Yes Substance Use Type: Marijuana Substance Use Frequency: Occasionally Are you DNR?: No Advance Directives: No Advance Directives Information Provided: Yes service: No Current occupational status: unemployed Meds Allergies Allergy/AdvReac Type Severity Reaction Status Date / Time No Known Allergies Allergy Verified 03/17/23 10:01 [No Known Allergies*] Exam Airway Mallampati Class: II TM Dist: >3cm Neck ROM: Full Denture: Upper Heart: ok Lungs: ok Assessment and Plan Assessment Anesthesia Assessment: Anesthesia Plan Discussed Final Anesthetic Review Family History of Problems with Anesthesia: No History of Problems with Anesthesia: No NPO: Yes ASA Class: III Final Preanesthetic Review: No Changes in Pt Med Stat, Meds/Allgs Chart Reviewed, Consent Obtained/Reviewed and Anes Risks/Benef Reviewed Patient Risk: Intermediate Procedure Risk: Low Anesthetic Plan Anesthetic Plan: MAC: and Agree w/ Assess. and Plan Disposition: Standard PACU
--- NOTE | ~2023-03-17 | XR_ITS ---
EXAMINATION: XR CHEST CLINICAL INFORMATION: Question aspiration. COMPARISON: CT chest dated 01/14/2018; chest radiographs dated 08/25/2014. TECHNIQUE: Frontal view of the chest was obtained. FINDINGS: The heart, great vessels, pulmonary vasculature and mediastinum are stable. There is atherosclerotic calcification of the aortic knob. There is bilateral bleb formation consistent with the prior CT findings. This is most pronounced at the right apex and lateral mid left lung. No infiltrate, effusion or pneumothorax is seen. There is no acute osseous abnormality. There are degenerative changes of the right shoulder. XR/XR chest 1V IMPRESSION: There are stable emphysematous changes. No superimposed focal infiltrate or congestive heart failure is seen.
[2023-03-17 09:32] VITALS: BMI 22.7
[2023-03-17 09:38] VITALS: BP 118/70; PULSE 80; RESP 16; TEMP 37.2; O2SAT 99
[2023-03-17] MEDS: Lactated Ringers 1,000 ML 100 ML IVCONT (10:00)
--- NOTE | 2023-03-17 11:49 | PM.OP ---
Brief Operative Note Date of Service: 03/17/23 Pre-op diagnosis: Screening Post-op diagnosis: other (Colon polyps) Procedure: Colonoscopy to the cecum and TI with hot snare polypectomy x 4 Surgeon: Richard Lu MD Anesthesia: MAC Was an Seafood Specialist used for this Procedure?: No Estimated blood loss (mL): 0 Pathology: other (A. 2 Proximal ascending colon polyps B. Distal ascending colon polyp C. Transverse colon polyp) Condition: stable Disposition: PACU
[2023-03-17 11:50] VITALS: BP 100/70; PULSE 76; RESP 20; TEMP 37.5; O2SAT 93
--- NOTE | 2023-03-17 12:02 | OP_ITS ---
DATE OF SERVICE: 03/17/2023 SURGEON: Richard Lu MD INDICATIONS: The patient presents for evaluation of colorectal cancer screening and personal history of tubular adenoma of the colon. Full consent has been obtained from him for this, including risks of bleeding and perforation. PREOPERATIVE DIAGNOSIS: Colorectal cancer screening and personal history of tubular adenoma of the colon. POSTOPERATIVE DIAGNOSIS: PROCEDURE PERFORMED: Colonoscopy to the cecum and terminal ileum with hot snare polypectomy x 4. ESTIMATED BLOOD LOSS: COMPLICATIONS: ANESTHESIA: Monitored anesthesia care. ASSISTANTS: SPECIMENS: POSTOPERATIVE DIAGNOSES: Colorectal cancer screening and personal history of tubular adenoma of the colon, colon polyps, diverticulosis, and internal hemorrhoids. DESCRIPTION OF PROCEDURE: The patient was placed in the left lateral decubitus position. The digital rectal exam revealed no abnormalities. The Olympus video pediatric colonoscope was entered into the rectum and advanced easily to the cecum. Once in the cecum, I did identify normal-appearing cecal pouch with appendiceal orifice and a normal-appearing ileocecal valve. The terminal ileum was cannulated and appeared normal. The scope was withdrawn back in the colon. The entire cecum and ileocecal valve appeared normal. The scope was slowly withdrawn assessing all mucosal surfaces carefully. Preparation was excellent. In the very proximal ascending colon were 2 approximately 10 to 12 mm polyps, which were each snared and recovered by suction. Both polypectomy sites appeared clean, without any sign of residual polyp nor bleeding. In the distal ascending colon was an approximately 10 to 12 mm polyp, which was removed by hot snare polypectomy and recovered by suction. The polypectomy site appeared clean, without any sign of residual polyp nor bleeding. In the transverse colon was an approximately 6 mm polyp, which was removed by hot snare polypectomy and recovered by suction. The polypectomy site appeared clean, without any sign of residual polyp nor bleeding. I did not visualize any other polyps, colitis, nor angiodysplasia. There was a mild amount of sigmoid diverticulosis. In the rectum, the scope was retroflexed visualizing internal hemorrhoids, but no other pathology. The rectal mucosa appeared normal. The scope was straightened and withdrawn from the patient. Of note, I would have ideally placed Resolution clips on each polypectomy site as he has to go back on his daily 81mg aspirin. However, for the majority of the scope withdrawal he was having hiccoughing and abdominal breathing causing a lot of to and fro movement of the colon and making things difficult in that regard. Therefore, the procedure became somewhat lengthy. He also began having vomiting during the scope withdrawal making the procedure even more difficult. My goal, therefore, was to try to remove the sizeable polyps and finish the procedure before risking aspiration and having to abort the procedure entirely. He was transferred to the recovery area in stable condition. It did not appear that he aspirated based on the Anesthesiologist's assessment.. IMPRESSION: 1. Colon polyps. 2. Diverticulosis. 3. Internal hemorrhoids. PLAN: Although there was no definitive aspiration, he will be having a chest x-ray before he goes home and be observed to be sure things are stable from a respiratory standpoint The results of the biopsies will be checked. I would recommend a repeat colonoscopy in 3 years for further surveillance. He was advised to resume his aspirin in 48 hours and to not use any NSAIDs for 1 week. He will see me in 1 year for followup of his previous hepatitis C infection. He was advised to call me if he has any signs of bleeding at home. This has been discussed with his son, Jr Sukhdeep, as well. MD INGRIS Mccoy/DEVANG / [id number] MTDD
[2023-03-17 12:05] VITALS: BP 122/48; PULSE 75; RESP 20; O2SAT 96
[2023-03-17 12:20] VITALS: BP 127/71; PULSE 77; RESP 18; O2SAT 95
[2023-03-17 12:35] VITALS: BP 136/73; PULSE 76; RESP 15; O2SAT 98
[2023-03-17 12:50] VITALS: BP 130/74; PULSE 77; RESP 14; TEMP 37.2; O2SAT 98
== END 2023-03-17 13:15 | disposition home or self-care (01) ==
PROVIDERS: PCP Registered Nurse; Visit Provider Internal Medicine
PROC: 0DJD8ZZ Inspection of Lower Intestinal Tract, Via Natural or Artificial Opening Endoscopic (ICD-10-PCS; CPT 45378; principal; 2023-03-17 10:30)
DX: Z12.11 Encounter for screening for malignant neoplasm of colon (principal); D12.2 Benign neoplasm of ascending colon; D12.4 Benign neoplasm of descending colon; K57.30 Diverticulosis of large intestine without perforation or abscess without bleeding; K64.8 Other hemorrhoids; Z86.010 Personal history of colon polyps
CPT/HCPCS: 45385; 71045; 88305; J2704

== ENCOUNTER 2023-06-29 11:54 | Outpatient (REF) | payer MEDICARE, MEDICAID, SELFPAY ==
[2023-06-29 13:14] LABS: MANUAL DIFF FLAG NO
[2023-06-29 13:30] LABS: Basophils Percent Auto 0.5 % (0-2); Eosinophils Absolute Auto 0.1 X10*3/uL (0.0-0.4); Eosinophils Percent Auto 1.5 % (0-4); Hematocrit 41.9 % (42.0-52.0); Hemoglobin 13.4 g/dl (14.0-18.0); Imm Gran Abs Auto 0.01 X10*3/uL (0.00-0.03); Imm Gran Pct Auto 0.2 % (0.0-0.4); Lymphocytes Absolute Auto 2.3 X10*3/uL (1.2-4.9); Lymphocytes Percent Auto 37.3 % (20-40); Mean Corpuscular Hemoglobin 28.6 pg (27.0-33.0); Mean Corpuscular Volume 89.5 fL (80.0-98.0); Mean Platelet Volume 11.5 fL (9.4-12.4); Monocytes Absolute Auto 0.7 X10*3/uL (0.1-1.2); Monocytes Percent Auto 11.3 % (2-11); Neutrophils Percent Auto 49.2 % (45-73); Platelet Count 214 X10*3/uL (160-400); Red Blood Count 4.68 X10*6/uL (4.60-5.80); Red Cell Distribution Width 13.5 % (11.0-16.0); White Blood Count 6.1 X10*3/uL (4.8-10.8)
[2023-06-29 13:45] LABS: Estimated Average Glucose 128 mg/dL; Hemoglobin A1c % 6.1 % (<6.0)
[2023-06-29 14:14] LABS: Alanine Aminotransferase 11 U/L (0-40); Albumin Level 4.2 g/dL (3.5-5.0); Alkaline Phosphatase 74 U/L (39-117); Anion Gap 14 (12-20); Aspartate Amino Transferase 18 U/L (5-37); Bilirubin Total 0.3 mg/dL (0.0-1.0); Blood Urea Nitrogen 8 mg/dL (9-16); C Reactive Protein 0.11 mg/dL (< or = 0.50); Calcium 9.6 mg/dL (8.4-10.2); Carbon Dioxide 27 mmol/L (22-29); Chloride 106 mmol/L (96-108); Cholesterol 107 mg/dL (<200); Estimated Glomerular Filt Rate > 60; Glucose Random 103 mg/dL (60-115); HDL Cholesterol 36 mg/dL (>40); LDL Cholesterol Calculated 57 mg/dL (<100); Lactate Dehydrogenase 240 U/L (118-273); Potassium 4.2 mmol/L (3.3-5.1); Sodium 143 mmol/L (135-145); Total Protein 7.7 g/dL (6.5-8.0); Triglycerides 74 mg/dL (<150)
[2023-06-29 14:15] LABS: TSH reflex Free T4 1.82 uIU/mL (0.32-4.0)
[2023-06-29 14:18] LABS: Erythrocyte Sedimentation Rate 11 MM/HR (0-15)
== END 2023-06-29 11:55 | disposition home or self-care (01) ==
LOC: HO.HHCL 11:54
PROVIDERS: Visit Provider Registered Nurse
DX: Z00.00 Encounter for general adult medical examination without abnormal findings (principal); R63.0 Anorexia; R73.03 Prediabetes; I10 Essential (primary) hypertension
CPT/HCPCS: 36415; 80053; 80061; 83036; 83615; 84443; 85025; 85652; 86140

== ENCOUNTER 2023-11-10 12:32 | Outpatient (REF) | payer MEDICARE, MEDICAID, SELFPAY ==
[2023-11-10 13:47] LABS: MANUAL DIFF FLAG NO
[2023-11-10 13:56] LABS: Basophils Percent Auto 0.4 % (0-2); Eosinophils Absolute Auto 0.1 X10*3/uL (0.0-0.4); Eosinophils Percent Auto 1.4 % (0-4); Hematocrit 41.9 % (42.0-52.0); Hemoglobin 13.3 g/dl (14.0-18.0); Imm Gran Abs Auto 0.01 X10*3/uL (0.00-0.03); Imm Gran Pct Auto 0.2 % (0.0-0.4); Lymphocytes Absolute Auto 2.1 X10*3/uL (1.2-4.9); Lymphocytes Percent Auto 38.4 % (20-40); Mean Corpuscular HGB Conc 31.7 g/dl (31.0-36.0); Mean Corpuscular Hemoglobin 27.7 pg (27.0-33.0); Mean Corpuscular Volume 87.3 fL (80.0-98.0); Mean Platelet Volume 11.8 fL (9.4-12.4); Monocytes Absolute Auto 0.7 X10*3/uL (0.1-1.2); Neutrophils Absolute Auto 2.6 x10*3/uL (2.0-8.3); Neutrophils Percent Auto 46.6 % (45-73); Platelet Count 223 X10*3/uL (160-400); Red Cell Distribution Width 13.5 % (11.0-16.0); White Blood Count 5.5 X10*3/uL (4.8-10.8)
[2023-11-10 14:37] LABS: Creatinine Urine 24.09 mg/dL; Microalbum/Creatinine Ratio Ur 20.7 ug/mg cr (<30)
[2023-11-10 14:38] LABS: Alanine Aminotransferase 18 U/L (0-40); Albumin Level 4.3 g/dL (3.5-5.0); Alkaline Phosphatase 68 U/L (39-117); Aspartate Amino Transferase 24 U/L (5-37); Bilirubin Direct 0.2 mg/dL (0.0-0.5); Bilirubin Total 0.3 mg/dL (0.0-1.0); Cholesterol 118 mg/dL (<200); HDL Cholesterol 42 mg/dL (>40); Iron 63 mcg/dL (45-160); LDL Cholesterol Calculated 60 mg/dL (<100); Percent Iron Saturation 24 % (15-50); Total Iron Binding Capacity 267 mcg/dL (228-428); Total Protein 7.9 g/dL (6.5-8.0); Triglycerides 82 mg/dL (<150); Unsaturated Iron Binding 204 ug/dL
[2023-11-10 14:55] LABS: Ferritin 70 ng/mL (20-250); Vitamin D 25-OH Total 21.4 ng/mL (>30)
[2023-11-10 15:03] LABS: Folate 4.6 ng/mL (> or = 4.0); Vitamin B12 311 pg/mL (200-900)
== END 2023-11-10 12:33 | disposition home or self-care (01) ==
LOC: HO.HHCL 12:32
PROVIDERS: Visit Provider Registered Nurse
DX: Z00.00 Encounter for general adult medical examination without abnormal findings (principal); R63.0 Anorexia; D64.9 Anemia, unspecified; K76.9 Liver disease, unspecified; E78.00 Pure hypercholesterolemia, unspecified
CPT/HCPCS: 80061; 80076; 82043; 82306; 82570; 82607; 82728; 82746; 83540; 85025

== ENCOUNTER 2024-03-13 12:22 | Outpatient (AMB) | payer MEDICARE, MEDICAID, SELFPAY ==
[2024-03-13 12:30] VITALS: BP 130/70; PULSE 56; BMI 22.5
--- NOTE | 2024-03-13 12:30 | MHC.OFFVIS ---
Vital Signs 03/13/24 12:30 Height 5 ft 10 in Weight 156 lb 8.451 oz BMI 22.5 BP 130/70 Blood Pressure Location Lt brachial Position Sitting Pulse 56 Intake Visit Reasons: r/s 06/17/23 1 yr followup w/ekg Intake Note: Overdue follow-up wtih ekg feeling good Autocad Detailer Required: No Allergies No Known Allergies [No Known Allergies*] Allergy (Verified 03/17/23 10:01) Medication List - Last Reconciled 03/13/24 by Jered Simmons MD amlodipine 5 mg PO BID aspirin 81 mg PO DAILY blood pressure monitor (Blood Pressure Kit) As directed carvedilol 12.5 mg PO BID losartan 50 mg PO BID rosuvastatin 40 mg PO DAILY trazodone 100 mg PO BEDTIME HPI Comments Details: Sukhdeep comes for follow-up. He said he has been doing very well from cardiac perspective. He takes all his medications religiously. Comes after a longer gap. Most recent LDL of 70 mg/dL. He says blood pressure is generally well controlled he is not checking it regularly. Denies any exertional chest pain. No shortness of breath, orthopnea, PND. No lightheadedness, syncope. [facility] Medical History Liver fibrosis Personal history of COVID-19 (~2020) Hx of hepatitis C Uncontrolled hypertension Screening for prostate cancer Screening for diabetes mellitus COVID-[address] elevation (STEMI) myocardial infarction involving left anterior descending coronary artery Hypercholesterolemia Paresthesia of bilateral legs Hypertension Surgical History Hx of right knee surgery H/O heart artery stent Stented coronary artery History of colonoscopy History of back surgery History of oral surgery Family History Father Chronic mental illness Depression Mother Depression Chronic mental illness Brother Stroke Sister S/P mastectomy Breast cancer screening by mammogram Social History Household Members: None Housing: Apartment Are you a primary home visit field care manager to a significant other at home: No Do you presently have visiting nurse or other home services: No Alcohol intake: never Patient Tobacco Use Status: Former Tobacco user Years Smoked: 50 +/- Substance Use Type: Marijuana service: No Current occupational status: unemployed Review of Systems Const Denies chills, Denies fatigue, Denies fever(s), Denies frequent falls, Denies weakness, Denies weight gain and Denies weight loss ENT Denies dizziness Card Denies chest pain, Denies leg edema, Denies lightheadedness, Denies palpitations, Denies dyspnea, Denies dyspnea on exertion, Denies orthopnea and Denies other (loss of consciousness) Resp Denies cough, Denies dyspnea and Denies dyspnea on exertion GI Denies hematochezia and Denies change in stool character Musc Denies abnormal gait, Denies muscle weakness, Denies numbness, Denies radiating pain into limb and Denies tingling Neuro Denies abnormal gait, Denies dizziness, Denies frequent falls, Denies numbness, Denies tingling and Denies weakness Endo Denies fatigue and Denies palpitations Physical Exam Vital Signs: Last Vital Signs Pulse 56 03/13/24 12:30 BP 130/70 03/13/24 12:30 BMI result Body Mass Index 22.5 Repeat blood pressure 130/82 Const General: cooperative, comfortable, no acute distress, alert and awake Nutritional Appearance: thin Orientation/consciousness: patient oriented x3 Limitations: no limitations Neck Neck: Yes trachea midline, Yes supple and Yes no JVD Resp Effort & Inspection: normal respiratory effort Auscultation: clear to auscultation bilaterally Cardio Jugular venous distension: no JVD Palpation: normal PMI Rate: regular rate Rhythm: regular rhythm Heart sounds: S1 normal heart sound present and S2 normal heart sound present Skin General skin exam: no rashes or lesions noted Neuro General: patient oriented x3 and no focal motor deficits Extrem General: Yes no clubbing, cyanosis or edema Psych Appearance: grossly normal Office Procedures EKG Details: EKG shows sinus bradycardia at 56 beats per minute [id number], Complete Assessment & Plan Assessment & Plan (1) Coronary artery disease: Code(s): I25.10 - Atherosclerotic heart disease of redding coronary artery without angina pectoris Category: Medical Plan: CAD with stenting of LAD for acute anterior STEMI in 2020. No recurrent symptoms since then. Doing very well from that perspective. Advised to call me with any new symptoms. Continue lifelong aspirin therapy. Continue aggressive blood pressure control which appears to be well controlled at this point time. LDL is well optimized. Importance of regular physical activity was discussed. Complete smoking cessation was advised. (2) Labile blood pressure: Code(s): R09.89 - Other specified symptoms and signs involving the circulatory and respiratory systems Category: Medical Plan: Significantly labile blood pressure which is doing well on current therapy. Advised to monitor blood pressure intermittently at home. He was no symptoms of orthostasis at this point time. Low-salt diet was discussed. Stress mitigation strategies were discussed. Continue current therapy. Will follow up in the clinic in 1 year's time, sooner p.r.n.. Thank you for allowing me to partake in his care Coding Level of Care Code Est Pt Level 4 (18161) Complex EM visit Add On G2211 Diagnoses Coronary artery disease I25.10 Labile blood pressure R09.89 CPT Codes EKG - CPT: 01846-[id number], Complete ([id number])
--- OUTSIDE RECORDS SUMMARY | 2024-03-13 13:42 | XMS_ITS | Encounter Summary ---
Author Organization [employer] Address [address] [place] [address] Care Team Providers Care Plumbing Assembler Installer Name Role Phone BhavikNiki carias DEPUTY CHIEF MAGISTRATE Primary Care Provider [phone] Encounter Details Date Type Department Care Team (Late st Contact Info) Description 11/08/2023 Orders Only [facility] [address] [place], [place] [id number] Provider, MD [place]on Social History Tobacco Use Types Packs/Day Years Used Date Smoking Tobacco: Never Smokeless Tobacco: Never Alcohol Use Standard Drinks/Week Comments Never 0 (1 standard drink = 0.6 oz pur e alcohol) Depression Answer Date Recorded Patient Health Questionnaire-9 Score 0 08/20/2022 Housing Stability Answer Date Recorded What is your housing situation today? I have jeannine tilley 12/04/[address] you li ve. Do you have problems with any of the following? None of the above 12/04/2022 Food Insecurity Answer Date Recorded Within the past 12 months, y ou worried that your food would run out before you got money to buy more: Never True 12/04/2022 Within the past 12 months,th e food you bought just didn't last and you didn't have enough money to get more: Never True Transportation Answer Date Recorded In the past 12 months, has l ack of transportation kept you from medical appts, meetings, work or from getting things needed for daily living? No 12/04/2022 Utilities Answer Date Recorded In the past 12 months, has t he electric, gas, oil or water company threatened to shut off services in your home? No 12/04/2022 Depression Answer Date Recorded Patient Health Questionnaire-2 Score 0 08/20/2022 Sex and Gender Information Value Date Recorded Sex Assigned at Male 12/08/2021 10:16 AM EDT Legal Sex Male 10:16 AM EDT Gender Identity Male 12/08/2021 10:16 AM EDT Sexual Orientation Straight 11/08/2023 2: 12 PM EDT documented as of this encounter Plan of Treatment Upcoming Encounters Date Type Department Care Team (Late st Contact Info) Description 03/22/2024 3:30 PM EST Office Visit [facility] [address] [place] [address] James Mariscal DDS [address] [place] [address] documented as of this encounter Procedures Procedure Name Priority Date/Time Associated Diagnosis Comments HM COLONOSCOPY Routine 03/17/2023 10:13 PM EST SURGICAL PATHOLOGY Routine 03/17/2023 8:59 AM EST documented in this encounter Results * Hm Colonoscopy (03/17/2023 10:13 PM EST) us Historical Provider HEALTH MAINTENANCE Final Result * Surgical Pathology (03/17/2023 8:59 AM EST) us Historical Provider LAB PATHOLOGY ORDERABLES Final Result documented in this encounter Visit Diagnoses Not on filedocumented in this encounter Additional Health Concerns Assessment Noted Time PHQ-9 Depression Total Score: 0 08/21/19 23 10:26 AM EDT documented as of this encounter Care Teams Plumbing Assembler Installer Relationship Specialty Start Date End Date Niki Walker FNP [address] [place] [address] PCP - General Family Medicine 11/25/21 documented as of this encounter
--- OUTSIDE RECORDS SUMMARY | 2024-03-13 13:42 | XMS_ITS | Encounter Summary ---
Author Organization [employer] Address [address] [place] [address] Care Team Providers Care Residential Case Manager Name Role Phone Niki Walker Primary Care Provider Reason for Visit * Reason Comments Med Refill Encounter Details Date Type Department Care Team (Late Contact Info) Description 01/29/[address] [facility] [address] [place] [address] Niki Walker FNP [address] [place] [address] Social History Tobacco Use Types Packs/Day Years Used Date Smoking Tobacco: Never Assessed Sex and Gender Information Value Date Recorded Sex Assigned at Male 12/08/2021 10:16 AM EDT Legal Sex Male 10:16 AM EDT Gender Identity Male 12/08/2021 10:16 AM EDT Sexual Orientation Straight 11/08/2023 2: 12 PM EDT documented as of this encounter Miscellaneous Notes * Telephone Encounter - Yesenia Olsen RN - 01/30/2022 10:27 AM EST Call was placed to Pharmacy, Spoke to Jes [employer]. Jes agreeable to remove Brilinta 90 mg Tab from med profile and will send Rosuvastatin Calcium (Crestor) 40 mg tab to [facility]. documented in this encounter Plan of Treatment Upcoming Encounters Date Type Department Care Team (Late Contact Info) Description 03/22/2024 3:30 PM EST Office Visit [facility] ADULT DENTAL [address] [place] [address] James Mariscal DDS [address] [place] [address] documented as of this encounter Visit Diagnoses Not on filedocumented in this encounter Care Teams Residential Case Manager Relationship Specialty Start Date End Date Niki Walker FNP [address] [place] [address] PCP - General Family Medicine 11/25/21 documented as of this encounter
--- OUTSIDE RECORDS SUMMARY | 2024-03-13 13:43 | XMS_ITS | Encounter Summary ---
Author Organization [employer] [facility] Address [address] [place] [address] 7t [place] [address] Care Team Providers Care Energy And Conservation Technician Name Role Phone Niki Walker Primary Care Provider [phone] Encounter Details Date Type Department Care Team (Late st Contact Info) Description 06/26/2022 Orders Only [facility] MED[facility] [address] [place] [address] Luz Maria Gaming LPN Social History Tobacco Use Types Packs/Day Years Used Date Smoking Tobacco: Never Assessed Sex and Gender Information Value Date Recorded Sex Assigned at Male 12/08/2021 10:16 AM EDT Legal Sex Male 10:16 AM EDT Gender Identity Male 12/08/2021 10:16 AM EDT Sexual Orientation Straight 11/08/2023 2: 12 PM EDT COVID-19 Exposure Response Date Recorded In the last 10 days, have yo u been in contact with someone who was confirmed or suspected to have Coronavirus/COVID-19? No / Unsure 06/23/2022 2:11 PM EDT documented as of this encounter Plan of Treatment Upcoming Encounters Date Type Department Care Team (Late st Contact Info) Description 03/22/2024 3:30 PM EST Office Visit [facility] ADULT DENTAL [address] [place] [address] James Mariscal DDS [address] [place] [address] documented as of this encounter Visit Diagnoses Not on filedocumented in this encounter Care Teams Energy And Conservation Technician Relationship Specialty Start Date End Date Niki Walker FNP [address] [place] [address] PCP - General Family Medicine 11/25/21 documented as of this encounter
--- OUTSIDE RECORDS SUMMARY | 2024-03-13 13:43 | XMS_ITS | Encounter Summary ---
Author Organization [employer] Address [address] [facility] 7t [place] [address] Care Team Providers Care Award Machine Operator Name Role Phone BhavikNiki carias NYDIA Primary Care Provider [phone] Reason for Visit * Reason Comments Dentures Encounter Details Date Type Department Care Team ([facility] st Contact Info) Description 03/01/2024 11:00 AM EST Office Visit [facility] ADULT DENTAL [address] [place], [place] [phone] James Mariscal, FAREEDS [address] [place], [place] [phone] Complete edentulism, unspecified edentulism class (Primary Dx) Social History Tobacco Use Types Packs/Day Years [...] PM EDT documented as of this encounter Progress Notes * James Mariscal DDS - 03/01/2024 11:00 AM EST Patient ID: Sukhdeep Kan is a 73 y.o. male. Time Out: No data recorded Location: [facility] Tooth: Maxilla and Mandible Procedure: Dentures Verified the above with patient, bus assistant, and provider. Confirmed via patient's chart, intraorally and by radiographs. International Project Engineer: not applicable Chief Complaint Patient presents with Dentures Medical Hx: Vitals: There were no vitals taken for this visit. Medications, Med Hx reviewed with patient and updated in chart. Consent Obtained: The risks, benefits, indications, potential complications, and alternatives were explained to the patient and informed consent was obtained with good understanding. Treatment Provided: Dental procedures in this visit D5750.1 - DENTURE IMPRESSION Impression taken with Alginate of Maxilla and Mandible Case sent to lab to fabricate custom trays. Lab used: [facility]. Lab Due Date: 02-10-24 Shade A 2 Patient discharged alert, oriented, and in stable condition. NV: Bite / try in [place] [facility] Spear: Kyra Donis Dentist: James Mariscal DDS documented in this encounter Plan of Treatment Upcoming Encounters Date Type Department Care Team (Late st Contact Info) Description 03/22/2024 3:30 PM EST Office Visit [facility] ADULT DENTAL [address] [place] [address] James Mariscal DDS [address] [place] [address] Scheduled Orders Name Type Priority Associated Diagnoses Orde r Schedule Max Max COMPLETE DENTURE - MAXILLARY Dental Routine [address] arting 03/01/2024 Ramón Ramón COMPLETE DENTURE - MANDIBULAR Dental Routine 1 Occurrenc es starting 03/01/2024 BITE REGISTRATION Dental Routine 1 Occur rences starting 03/01/2024 WAX TRY IN Dental Routine 1 Occurrences starting 03/01/2024 documented as of this encounter Procedures Procedure Name Priority Date/Time Associated Diagnosis Comments DENTURE IMPRESSION Routine 03/01/2024 11:00 AM EST documented in this encounter Visit Diagnoses Diagnosis Complete edentulism, unspecified edentulism class- Primary documented in this encounter Additional Health Concerns Assessment Noted Time PHQ-9 Depression Total Score: 0 08/21/19 23 10:26 AM EDT documented as of this encounter Care Teams Award Machine Operator Relationship Specialty Start Date End Date Niki Walker FNP [address] [place] [address] PCP - General Family Medicine 11/25/21 documented as of this encounter
--- OUTSIDE RECORDS SUMMARY | 2024-03-13 13:43 | XMS_ITS | Encounter Summary ---
Author Organization [employer] Address [address] [facility] 7t [place] [address] Care Team Providers Care Manager Cash Name Role Phone Niki Walker TRANSMITTER TESTER Primary Care Provider [phone] Encounter Details Date Type Department Care Team (Late st Contact Info) Description 01/29/2022 Orders Only [facility] [address] [place] [address] Luz Maria Gaming LPN Social History Tobacco [...] Description 03/22/2024 3:30 PM EST Office Visit [facility] ADULT DENTAL [address] [place] [address] James Mariscal DDS [address] [place] [address] documented as of this encounter Procedures Procedure Name Priority Date/Time Associated Diagnosis Comments URINALYSIS WITH REFLEX MICROSCOPIC Routine 05/26/2022 11:39 PM EDT documented in this encounter Results * Urinalysis with reflex microscopic (05/26/2022 11:39 PM EDT) Color Urine Yellow [facility] Appearance Urine Clear [facility] PH 7.0 5.0 - 9.0 [facility] Glucose Urine UA Negative Negative mg/dL [facility] Urine Blood Negative Negative [facility] Specific [place] - Urine <=1.005 1.005 - 1.025 [facility] Urine Protein Negative Neg-Trace mg/dL [facility] Urine Ketones Negative Negative mg/dL [facility] Nitrite Urine Negative Negative [facility] Leukocyte Esterase Urine Negative Negative [facility] 05/26/2022 11:3 9 PM EDT 05/26/2022 11:43 PM EDT Narrative [facility] - 05/26/2022 11:47 PM EDT [id number], Clean [employer] External Provider LAB URI NE ORDERABLES Final Result Performing Organization Address City/State/[facility] Co de Phone Number [facility] [address] [place] [address] [phone] documented in this encounter Visit Diagnoses Not on filedocumented in this encounter Care Teams Manager Cash Relationship Specialty Start Date End Date Niki Walker FNP [address] [place] [address] PCP - General Family Medicine 11/25/21 documented as of this encounter
--- OUTSIDE RECORDS SUMMARY | 2024-03-13 13:43 | XMS_ITS | Clinical Summary ---
Author Organization [employer] Address [address] [facility] 7t [place] [address] Care Team Providers Care Psychiatric Attendant Name Role Phone Niki Walker DISASTER DIRECTOR Primary Care Provider [phone] Allergies No known active allergies Medications amLODIPine (Norvasc) 5 MG tablet Take 5 mg by mouth 2 times daily. 06/27/19 23 Active Aspirin Low Dose 81 MG EC tablet Take 81 mg by mouth in the morning. 06/11/19 23 Active carvedilol (Coreg) 12.5 MG tablet Take 12.5 mg by mouth 2 times daily. 08/14/19 23 Active losartan (Cozaar) 50 MG tablet Take 50 mg by mouth 2 times daily. 06/11/19 23 Active polyethylene glycol, PEG, 3350 (MiraLax) 17 GM/SCOOP powderIndicati ons:Screening for colon cancer Mix and Drink according to directions specified by GI provider for colonoscopy prep 238 g 12/22/19 23 Active bisacodyl (Dulcolax) 5 MG EC tabletIndicati ons:Screening for colon cancer Use as directed by GI provider for colonoscopy prep. Do not crush, chew, or split. 4 tablet 12/22/19 23 Active acetaminophen (Tylenol 8 Hour) 650 MG ER tablet TAKE 1 TABLET BY ORAL ROUTE EVERY 12 HOURS NEEDED FOR PAIN OR FEVER 180 tablet 3 12/22/19 23 Active tacrolimus (Protopic) 0.1 % ointmentIndica tions:Pruritus scroti Apply topically 2 times daily. 30 g 1 10/05/19 24 025 Active cholecalcifero l (Vitamin D-3) 25 MCG (1000 UT) tablet Take 1 tablet (25 mcg) by mouth Once per day. 30 tablet 11 11/25/19 24 025 Active traZODone (Desyrel) 100 MG tablet TAKE 1 TABLET BY MOUTH AT BEDTIME NEEDED FOR INSOMNIA 90 tablet 1 12/02/19 24 Active rosuvastatin (Crestor) 40 MG tablet TAKE 1 TABLET BY MOUTH NIGHTLY BEFORE BED FOR CHOLESTEROL 90 tablet 3 02/28/19 25 Active rosuvastatin (Crestor) 40 MG tablet Take 1 tablet by mouth nightly before bed for cholesterol 90 tablet 3 06/28/19 24 025 Discontinued Active Problems Problem Noted Date Diagnosed Date Complete edentulism 12/29/2023 History of hepatitis C 11/07/2023 Liver fibrosis 06/29/2023 Overview (11/07/2023): Followed by [facility] (Dr. Lu) Jan 2023: Abd US w/ elastography, median stiffness is 1.55 ms. Measurements rule out compensated advanced chronic liver disease. Mar 2023: Lab work c/w liver fibrosis, F3 Assessment & Plan (11/07/2023 4:44 PM EDT): Assessment & Plan (06/29/2023 8:37 AM EDT): Followed by [facility] (Dr. Lu) Jan 2023: Abd US w/ elastography, median stiffness is 1.55 ms. Measurements rule out compensated advanced chronic liver disease. Mar 2023: Lab work c/w liver fibrosis, F3 Normal oral exam 12/21/2022 Overview (06/29/2023): Colonoscopy: last 03/17/[address] Lu. (+) for diverticulosis, hemorrhoids, and colon polyps. Follow up in 3 years (hx tubular adenoma) Dental: [facility]erral to [facility] dental placed 06/28/23 Assessment & Plan (12/21/2022 10:07 PM EST): Check STI, Due for A1c and lipid panel Coronary artery disease 06/23/2022 Hypercholesterolemia 06/23/2022 Overview (11/07/2023): Lab Results Component Value Date CHOL 107 06/29/2023 CHOL 202 (H) 12/22/2022 TRIG 74 06/29/2023 TRIG 129 12/22/2022 HDL 36 (L) 06/29/2023 HDL 30 (L) 12/22/2022 LDLCHOLCAL 57 06/29/2023 LDLCHOLCAL 147 (H) 12/22/2022 -Cont rosuvastatin 40mg nightly -continue lifestyle modification Assessment & Plan (11/07/2023 4:42 PM EDT): Much improved following initiation of statin, cont as above Insomnia 06/23/2022 Prediabetes 12/05/2021 Assessment & Plan (11/07/2023 4:43 PM EDT): Lab Results Component Value Date HGBA1C 6.1 (H) 06/29/2023 -Pt currently drink can of coca cola every AM, encouraged cut back slowly Assessment & Plan (06/29/2023 8:56 AM EDT): Lab Results Component Value Date HGBA1C 5.8 12/22/2022 -Pt currently drink can of coca cola every AM, encouraged cut back slowly -Recheck A1c Erythrocytosis 11/25/2021 Overview (11/07/2023): -History of erythrocytosis, previously followed by [facility] Heme/Onc Assessment & Plan (11/07/2023 4:43 PM EDT): -Decreased hemoglobin on labs from June 2023, pt asymptomatic -Repeat labs ordered Assessment & Plan (12/21/2022 10:05 PM EST): -History of erythrocytosis, check CBC Generalized ischemic myocardial dysfunction 11/08 Hypertension 11/25/2021 Overview (12/21/2022): ?? Pt sustained OH on 03/17/2020 - evaluated at [facility] where underwent stent placement (Synergy YAN) to LAD ?? 2-D Echo (06/2021) showed normal LVEF 60-65%, mild septal asymmetric hypertrophy & no significant valve disease. ?? Continue following with [facility] Cardiology - Dr. Simmons. ?? History of markedly elevated BP with readings SBP 170s-180s. Pt reports it has been this way for most of his life and has been evaluated by many doctors in the past BP closer to goal today ?? Denies any chest pain, palpitations, LOMBARDI, blurry vision, SOB, N/V/D Continue current med regimen: ?? amlodipine 5mg BID ?? carvedilol 12.5mg BID ?? losartan 100mg daily ?? rosuvastatin 40mg nightly ?? aspirin 81mg daily -ED precautions Assessment & Plan (06/29/2023 8:57 AM EDT): -History of chronically elevated BP following with Cards -Cont med regimen as above Assessment & Plan (06/23/2022 4:01 PM EDT): -Improved with recheck but still not at goal. He said it was recently normal with cardiology. -Will reschedule with PCP -No changes made at this time. Myocardial infarction 11/25/2021 Resolved Problems Problem Noted Date Diagnosed Date Resolved Date Enlarged lymph node in neck 06/23/2022 12/21/2022 Assessment & Plan (08/20/2022 7:54 PM EDT): ?? Completed course of abx and symptoms have drastically improved per pt ?? Established with ENT - Dr. Lawler. Plan to follow up with their office PRN ?? Notes from ENT office pending Labile blood pressure 06/23/20222022 Screening for prostate cancer 06/23/2022 12/21/2022 Neck mass 06/23/2022 12/21/2022 Overview (06/23/2022): Given pain will treat for sialadenitis with Augmentin BID for 10 days. Will check contrast enhanced CT. ENT referral. Assessment & Plan (06/23/2022 3:59 PM EDT): Given pain will treat for sialadenitis with Augmentin BID for 10 days. Will check contrast enhanced CT. ENT referral. Encounters Date Type Department Care Team Description 03/01/2024 11:00 AM EST Office Visit [facility] ADULT DENTAL [address] [place] [address] James Mariscal DDS Complete edentulism, unspecified edentulism class (Primary Dx) 02/27/2024 Refill [facility] CHC MED & PEDS [address] [place], [place] [phone] Niki Walker FNP 12/29/2023 11:00 AM EST Office Visit [facility] ADULT DENTAL [address] [place] [address] James Mariscal DDS Complete edentulism, unspecified edentulism class (Primary Dx); Normal oral exam from Last 3 Months Immunizations Name Administration Dates Next Due Tdap 01/13/2018,03/07/2013 Zoster, live 08/19/2016 Social History Tobacco Use Types Packs/Day Years Used Date Smoking Tobacco: Never Smokeless Tobacco: Never Tobacco Cessation:Counseling Given: Not Answered Alcohol Use Standard Drinks/Week Comments Never 0 [...] Orientation Straight 11/08/2023 2: 12 PM EDT Last Filed Vital Signs Vital Sign Reading Time Taken Comments Blood Pressure 139/75 11/05/2023 11:03 AM EDT Pulse 58 11/05/2023 11:03 AM EDT Temperature 36.8 ??C (98.3 ??F) 11/05/2023 11:03 AM E DT Respiratory Rate 17 11/05/2023 11:03 AM EDT Oxygen Saturation 98% 11/05/2023 11:03 AM EDT Inhaled Oxygen Concentration - - Weight 70.9 kg (156 lb 4 oz) 11/05/2023 11:03 AM EDT Height 175.3 cm (5' 9 ) 11/05/2023 11:03 AM EDT Body Mass Index 23.07 11/05/2023 11:03 AM EDT Plan of Treatment Upcoming Encounters Date Type Department Care Team (Late st Contact Info) Description 03/22/2024 3:30 PM EST Office Visit [facility] ADULT DENTAL [address] [place] [address] James Mariscal, JONO [address] [place] [address] Health Maintenance Due Date Last Done Comments CT Colonography 1951 Dental Prophylaxis 1951 FIT DNA/Cologuard 1950 FIT 1950 FOBT 1950 Sigmoidoscopy 1950 Alcohol/Substance Use Screening 1963 Hepatitis A Vaccines (1 of 2 - Risk 2-dose series) 10/31/1970 Pneumococcal Vaccine: 50+ Years (1 of 2 - PCV) 10/31/1970 Dental X-Ray: Bitewings 12/14/2008 12/14/2007 Hepatitis B Vaccines (1 of 3 - Risk 3-dose series) 2011 RSV Patients and Patients Aged 60 years or older (1 - Risk 60-74 years 1-dose series) 2011 Zoster Vaccines (2 of 3) 10/14/2016 08/19/2016 Dental X-Ray: Full Mouth 02/27/2019 02/27/2016 Depression Screening 08/21/2023 08/20/2022, 08/21/19 SDOH Screening 08/21/2023 08/20/2022 COVID-19 Vaccine (3 - season) 2023 07/10/2020, 06/12/2020 Influenza Vaccine (#1) 2023 Dental Oral Exam 06/28/2024 12/29/2023, , 02/27/2016, Additional history exists Diabetes: Hemoglobin A1C 06/28/2024 024, 12/22/2022, 12/01/2021 Tobacco Screening 03/01/2025 03/01/2024 Colonoscopy 03/17/2026 03/17/2023 Colorectal Cancer Screening 03/17/2026 DTaP/Tdap/Td Vaccines (3 - Td or Tdap) 01/14/2028 01/13/2018, 03/07/2013 Lipid Panel 11/09/2028 11/10/2023, 06/09, 12/22/2022, Additional history exists HIB Vaccines Aged Out No longer eligi ble based on patient's age to complete this topic HPV Vaccines Aged Out No longer eligi ble based on patient's age to complete this topic IPV Vaccines Aged Out No longer eligi ble based on patient's age to complete this topic Meningococcal Vaccine Aged Out No smiley katy eligible based on patient's age to complete this topic RSV under 20 months Aged Out No longe r eligible based on patient's age to complete this topic Rotavirus Vaccines Aged Out No longer eligible based on patient's age to complete this topic Procedures Procedure Name Priority Date/Time Associated Diagnosis Comments DENTURE IMPRESSION Routine 03/01/2024 11 :00 AM EST PERIODIC ORAL EVALUATION - ESTABLISHED PATIENT Routine 12/29/2023 11:00 AM EST ADJUNCTIVE GENERAL SERVICES - PROFESSIONAL VISITS - CASE PRESENTATION, SUBSEQUENT TO DETAILED AND EXTENSIVE TREATMENT PLANNING Routine 12/29/2023 11:00 AM EST LIPID PANEL, STANDARD Routine 11/10/2023 12:35 PM EDT Hypercholesterolemi a HEMOGLOBIN A1C Routine 06/29/2023 11:36 AM EDT Prediabetes HM COLONOSCOPY Routine 03/17/2023 10:13 PM EST PANORAMIC RADIOGRAPHIC IMAGE Routine 02/27/2016 12:00 AM EST BITEWINGS - 2 RADIOGRAPHIC IMAGES Routine 12/14/2007 12:00 AM EST from Last 3 Months or Most Recently Relevant to Health Maintenance Results * Lipid Panel, Standard (11/10/2023 12:35 PM EDT) Triglycerides 82 <150 mg/dL [facility] Comment:Desirable Triglyceri de: less than 150 mg/dLBorderline High Triglyceride 150-199 mg/dLHigh Triglyceride: 200-499 mg/dLVery High Triglyceride: greater than or equal to 5OO mg/dL Cholesterol 118 <200 mg/dL [facility] Comment:Desirable Cholestero l: less than 200 mg/dLBorderline High Cholesterol: 200-239 mg/dLHigh Cholesterol: greater than 239 mg/dL LDL Cholesterol Calculated 60 <100 mg/dL [facility] Comment:Desirable LDL: less than 100 mg/dLNear Optimal/Above Optimal LDL: 110- 129 mg/dLBorderline High LDL: 130-159 mg/dLHigh LDL: 160-189 mg/dLVery High LDL: greater than or equal to 190 mg/dL HDL Cholesterol 42 >40 mg/dL [facility] Comment:Desirable HDL: great er than 40 mg/dL Note: This HDL assay may give artificially low results in patients with liver disease. Blood Venous blood specimen / Unknown 11/10/2023 12:35 PM EDT 11/10/2023 1:43 PM EDT us Niki Walker DISASTER DIRECTOR LAB BLOOD ORDERABLES Final Res ult [facility] [address] [place] [phone] * (ABNORMAL) Hemoglobin A1c (06/29/2023 11:36 AM EDT) Hemoglobin A1c 6.1(H) <6.0 % [facility] Comment:Hemoglobin A1C Refer ence Range Adults: 4.8 - 6.0 % Non diabetic: < 6.0 % Goal: < 7.0 %Additional Action Suggested: > 8.0 %Note: Hemoglobin A1c results are invalid for patients with abnormal amounts of HbF. Blood transfusions may impact the HbA1c concentration in the patient sample. Estimated Average Glucose 128 mg/dL [facility] Comment:eAG = Estimated ave rage glucose which is %A1C expressed asaverage glucose, using the formula of the [id number] Glucose study (ADAG), Diabetes Care, Vol.31,#8,Sep. 2007 Blood Venous blood specimen / Unknown 06/29/2023 11:36 AM EDT 06/29/2023 1:08 PM EDT Niki Walker DISASTER DIRECTOR LAB BLOOD ORDERABLES Final Res ult [facility] [address] [place] [phone] [phone] * Hm Colonoscopy (03/17/2023 10:13 PM EST) Historical Provider HEALTH MAINTENANCE Final Result from Last 3 Months or Most Recently Relevant to Health Maintenance Insurance [place] [address] [place] [id number] [facility] STANDARD DENTAL - HSN FULL (MEDICAID) Care Teams Psychiatric Attendant Relationship Specialty Start Date End Date Niki Walker FNP [address] [place] [phone] PCP - General Family Medicine 11/25/21
--- OUTSIDE RECORDS SUMMARY | 2024-03-13 13:43 | XMS_ITS | Encounter Summary ---
Author Organization [employer] Address [address] [facility] [address] [place] [address] Care Team Providers Care Adult Literacy Teacher Name Role Phone Niki Walker Primary Care Provider [phone] Reason for Visit * Reason Comments Med Refill Encounter Details Date Type Department Care Team ([facility] Contact Info) Description 02/27/2024 Refill [facility] CH[facility] MED & PEDS [address] [place], [place] [phone] Niki Walker FNP [address] [place], [place] [phone] Social History Tobacco Use Types Packs/Day Years [...] Description 03/22/2024 3:30 PM EST Office Visit [facility] ADULT DENTAL [address] [place], [place] [phone] James Mariscal DDS [address] [place] [address] documented as of this encounter Visit Diagnoses Not on filedocumented in this encounter Additional Health Concerns Assessment Noted Time PHQ-9 Depression Total Score: 0 08/21/19 23 10:26 AM EDT documented as of this encounter Care Teams Adult Literacy Teacher Relationship Specialty Start Date End Date Niki Walker FNP [address] [place], [place] [phone] PCP - General Family Medicine 11/25/21 documented as of this encounter
== END 2024-03-13 12:50 | disposition home or self-care (01) ==
PROVIDERS: PCP Registered Nurse; Visit Provider Internal Medicine Cardiovascular Disease
DX: I25.10 Atherosclerotic heart disease of native coronary artery without angina pectoris (principal); R09.89 Other specified symptoms and signs involving the circulatory and respiratory systems
CPT/HCPCS: 93010; 99214; G2211

== ENCOUNTER → 2024-03-13 12:22 | Outpatient (BNVA) | payer MEDICARE, MEDICAID, SELFPAY | PROVIDERS: PCP Registered Nurse; Visit Provider Internal Medicine Cardiovascular Disease | DX: I25.10 Atherosclerotic heart disease of native coronary artery without angina pectoris (principal); R09.89 Other specified symptoms and signs involving the circulatory and respiratory systems | CPT/HCPCS: 93005; 99212 ==

== ENCOUNTER 2024-12-18 13:21 | Outpatient (REF) | payer MEDICARE, MEDICAID, SELFPAY ==
--- OUTSIDE RECORDS SUMMARY | 2024-12-15 14:45 | XMS_ITS | Encounter Summary ---
Author Organization [employer] Address [address] [facility] 7t [place] [address] Care Team Providers Care Gamer Name Role Phone Niki Walker Primary Care Provider [phone] Encounter Details Date Type Department Care Team ([facility] st Contact Info) Description 12/15/2024 2:45 PM EST Office Visit [facility] CHC MED & PEDS [address] [place], [place] [phone] Niki Walker FNP [address] [place] [address] Primary hypertension (Primary Dx); Hypercholesterolemia; Coronary artery disease involving pauma coronary artery of [place] heart, unspecified whether angina present; Prediabetes; Liver [...] 4:32 PM Scott Rayo [place] * Feeling bad about yourself - [...] is a 74 y.o. male w/ PMH IA, hypertension, CAD, prediabetes, HLD, and erythrocytosiswho presents [...] curvatures. Longstanding history of hypertension and s/p IA. No known history of angina, does not [...] & Plan - [place] [facility] [place] Dr. Simmons (last consult Mar [...] ordered Hypertension - Primary Overview Pt sustained IA on 03/17/2020 - [place] [facility] stent placement (Synergy YAN) to LAD 2-D Echo (06/2021) showed normal LVEF 60-65%, mild septal asymmetric hypertrophy & no significant valve disease. Continue following with [facility] [place] - Dr. Simmons. History of markedly elevated BP with readings SBP 170s-180s. Pt reports it has been this way for most of his life and has been evaluated by many doctors in the past BP closer to goal today Denies any chest pain, palpitations, LOMBARDI, blurry vision, SOB, N/V/D [facility] - Dr. Conner. CEE 05/24/24 - [...] & Plan Lab Results Component Value Date [id number] 21.4 (L) 11/10/2023 - Continues with Vit [...] years (hx tubular adenoma) Dental: Referral to [facility] dental placed 06/28/23 OPH: [facility] - Dr. Conner. CEE 05/24/24 Last comprehensive review: 12/15/24 Relevant Orders Albumin, Random Urine W/Creatinine Lipid Panel, Standard Hemoglobin A1c TSH with Reflex to Free T4 Comprehensive Metabolic Panel CBC auto differential Vitamin D, 25-Hydroxy, Total, Immunoassay PSA,Total Chlamydia/Trichomonas/Neisseria gonorrhoeae, PCR, Urine Hematology and Neoplasia Erythrocytosis Overview -History of erythrocytosis, previously [place] [facility] [place] Current Assessment & Plan - Repeat [...] artery disease - Following with [facility] [place] - Dr. Simmons (last consult Mar 2024) - history of CAD with stenting of LAD for acute anterior STEMI in 2020 - Continue lifelong aspirin - LDL goal < 70, well controlled Lab Results Component Value Date LDLCHOLCAL 60 11/10/2023 * Assessment & Plan Note - NYDIA Quintero - 12/17/2024 6:58 PM ESTAssociated Problem(s): Vitamin D insufficiency Lab Results Component Value Date [id number] 21.4 (L) 11/10/2023 - Continues with Vit [...] Description 02/23/2025 1:45 PM EST Office Visit [facility] MED & PEDS [address] [place], [place] [phone] Niki Walker FNP [address] [place] [address] Scheduled Orders Name Type Priority Associated Diagnoses Orde r Schedule Albumin, Random Urine W/Creatinine Lab Routine Healthcare maintenance Expected: 12/15/2024 (Approximate), Expires: 12/15/2025 Lipid Panel, Standard Lab Routine Healthcare maintenance Expected: 12/15/2024 (Approximate), Expires: 12/15/2025 Hemoglobin A1c Lab Routine Healthcare maintenance Expected: 12/15/2024 (Approximate), Expires: 12/15/2025 TSH with Reflex to Free T4 Lab Routine Healthcare maintenance Expected: 12/15/2024 (Approximate), Expires: 12/15/2025 Comprehensive Metabolic Panel Lab Routine Healthcare maintenance Expected: 12/15/2024 (Approximate), Expires: 12/15/2025 CBC auto differential Lab Routine Healthcare maintenance Expected: 12/15/2024, Expires: 12/15/2025 Vitamin D, 25-Hydroxy, Total, Immunoassay Lab Routine Healthcare maintenance Vitamin D insufficiency Expected: 12/15/2024 (Approximate), Expires: 12/15/2025 PSA,Total Lab Routine Healthcare maintenance Expected: 12/15/2024, Expires: 12/15/2025 Chlamydia/Trichomonas/Neis seria gonorrhoeae, PCR, Urine Lab Routine Healthcare maintenance Expected: 12/15/2024 (Approximate), Expires: 12/15/2025 documented as of this encounter Visit Diagnoses Diagnosis Primary hypertension- Primary Unspecified essential hypertension Hypercholesterolemia Pure hypercholesterolemia Coronary artery disease involving pauma coronary artery of [place] heart, unspecified whether angina present Prediabetes Other [...] documented as of this encounter Care Teams Gamer Relationship Specialty Start Date End Date Niki Walker FNP [address] [place] [address] PCP - General Family Medicine 11/25/21 documented as of this encounter
--- OUTSIDE RECORDS SUMMARY | 2024-12-18 15:29 | XMS_ITS | Clinical Summary ---
Author Organization [employer] Address [address] [facility] 7[address] [place] [address] Care Team Providers Care Marketing And Outreach Coordinator Name Role Phone BhavikNiki carias NYDIA Primary Care Provider [phone] Allergies No known active allergies Medications amLODIPine [...] mouth 2 times daily. 06/11/19 23 Active rosuvastatin (Crestor) 40 MG tablet TAKE 1 TABLET BY MOUTH NIGHTLY BEFORE BED FOR CHOLESTEROL 90 tablet 3 02/28/19 25 Active acetaminophen (Tylenol 8 Hour) 650 MG ER tablet TAKE 1 TABLET BY ORAL ROUTE EVERY 12 HOURS NEEDED FOR PAIN OR FEVER 180 tablet 3 03/30/19 25 Active traZODone (Desyrel) 100 MG tablet TAKE 1 TABLET BY MOUTH AT BEDTIME NEEDED FOR INSOMNIA 90 tablet 1 05/25/19 25 Active diphenhydrAMINE (BENADryl) 2 % creamIndications: Poison danny dermatitis Apply topically if needed in the morning, at noon, and at bedtime for itching. Apply pea sized amount to skin injection site 1 hour before injection and repeat 1 hour after. Then bid prn if itching and redness continues. 15 g 2 10/04/19 25 026 Active cholecalciferol (Vitamin D3) 25 MCG (1000 UT) tabletIndications :Vitamin D insufficiency Take 1 tablet (1,000 Units) by mouth Once per day. 90 tablet 3 12/16/19 25 Active sildenafil (Viagra) 25 MG tabletIndications :Erectile dysfunction, unspecified erectile dysfunction type Take 1 tablet (25 mg) by mouth if needed each day for erectile dysfunction. Take 60 minutes before sexual activity. 10 tablet 2 12/16/19 25 025 Active polyethylene glycol, PEG, 3350 (MiraLax) 17 GM/SCOOP powderIndications :Screening for colon cancer Mix and Drink according to directions specified by GI provider for colonoscopy prep 238 g 12/22/19 23 025 Discontinu ed(Therapy completed) bisacodyl (Dulcolax) 5 MG EC tabletIndications :Screening for colon cancer Use as directed by GI provider for colonoscopy prep. Do not crush, chew, or split. 4 tablet 12/22/19 23 025 Discontinu ed(Therapy completed) cholecalciferol (Vitamin D-3) 25 MCG (1000 UT) tablet Take 1 tablet (25 mcg) by mouth Once per day. 30 tablet 11 11/25/19 24 025 predniSONE (Deltasone) 20 MG tabletIndications :Poison danny dermatitis 2 tabs po daily for 3 days 6 tablet 10/04/19 25 025 Discontinu ed(Therapy completed) Active Problems Problem Noted Date Diagnosed Date Vitamin D insufficiency 12/17/2024 Assessment & Plan (12/17/2024 6:58 PM EST): Lab Results Component Value Date [id number] 21.4 (L) 11/10/2023 - Continues with Vit D supplement 1000 units daily. - Repeat Vit D level Erectile dysfunction 12/17/2024 Assessment & Plan (12/17/2024 7:14 PM EST): - Difficulties with maintaining erections for months - years - Denies any concerns with anatomy, exam declined. Plan to test PSA, although denies any urinary symptoms or straining to void - Plan: start sildenafil 25mg daily PRN 60 mins before sexual activity. Reviewed med safety and SE. - Follow up in 8 weeks, sooner as needed. Complete edentulism 12/29/2023 History of hepatitis C 11/07/2023 Assessment & Plan (12/17/2024 7:11 PM EST): - Followed by [facility] - Dr. Lu - History of chronic Hep C - Consult May 2024 w/ plan to repeat abdominal US - Offered repeat Hep C testing, pt declines as labs ordered through GI Liver fibrosis 06/29/2023 Overview (11/07/2023): Followed by [...] 2023: Lab work c/w liver fibrosis, F3 Healthcare maintenance 12/21/2022 Overview (12/17/2024): Colonoscopy: last 03/17/[address] Lu. (+) for diverticulosis, hemorrhoids, and colon polyps. Follow up in 3 years (hx tubular adenoma) Dental: Referral to [facility] dental placed 06/28/23 OPH: [facility] - Dr. Conner. CEE 05/24/24 Last comprehensive review: 12/15/24 Assessment & Plan (12/21/2022 10:07 PM EST): Check STI, Due for A1c and lipid panel Coronary artery disease 06/23/2022 Assessment & Plan (12/17/2024 7:00 PM EST): - Following with [facility] - Dr. Simmons (last consult Mar 2024) - history of CAD with stenting of LAD for acute anterior STEMI in 2020 - Continue lifelong aspirin - LDL goal < 70, well controlled Lab Results Component Value Date LDLCHOLCAL 60 11/10/2023 Hypercholesterolemia 06/23/2022 Overview (12/17/2024): Lab Results Component Value Date CHOL 118 11/10/2023 CHOL 107 06/29/2023 CHOL 202 (H) 12/22/2022 TRIG 82 11/10/2023 TRIG 74 06/29/2023 TRIG 129 12/22/2022 HDL 42 11/10/2023 HDL 36 (L) 06/29/2023 HDL 30 (L) 12/22/2022 LDLCHOLCAL 60 11/10/2023 LDLCHOLCAL 57 06/29/2023 LDLCHOLCAL 147 (H) 12/22/2022 -Cont rosuvastatin 40mg nightly -continue lifestyle modification Assessment & Plan (12/17/2024 7:08 PM EST): Well controlled, repeat fasting lipid panel ordered Assessment & Plan (11/07/2023 4:42 PM EDT): Much improved following initiation of statin, cont as above Insomnia 06/23/2022 Assessment & Plan (12/17/2024 7:12 PM EST): - Well controlled with trazodone 100mg nightly PRN Prediabetes 12/05/2021 Assessment & Plan (12/17/2024 7:09 PM EST): Lab Results Component Value Date HGBA1C 6.1 (H) 06/29/2023 - Lifestyle interventions encouraged - Repeat blood work Assessment & Plan (11/07/2023 4:43 PM EDT): [...] (11/07/2023): -History of erythrocytosis, previously followed [place] [facility] [place] Assessment & Plan (12/17/2024 7:11 PM EST): - Repeat CBC Assessment & Plan (11/07/2023 4:43 PM EDT): -Decreased hemoglobin on labs from June 2023, pt asymptomatic -Repeat labs ordered Assessment & Plan (12/21/2022 10:05 PM EST): -History of erythrocytosis, check CBC Generalized ischemic myocardial dysfunction 11/08 Hypertension 11/25/2021 Overview (12/17/2024): Pt sustained UT on 03/17/2020 - [place] [facility] [place] (Synergy YAN) to LAD 2-D Echo (06/2021) showed normal LVEF 60-65%, mild septal asymmetric hypertrophy & no significant valve disease. Continue following with [facility] Cardiology - Dr. Simmons. History of markedly elevated BP with readings SBP 170s-180s. Pt reports it has been this way for most of his life and has been evaluated by many doctors in the past BP closer to goal today Denies any chest pain, palpitations, LOMBARDI, blurry vision, SOB, N/V/D [facility] - Dr. Conner. CEE 05/24/24 - NO hypertensive retinopathy Continue current med regimen: amlodipine 5mg BID carvedilol 12.5mg BID losartan 50mg BID rosuvastatin 40mg nightly aspirin 81mg daily -ED precautions Assessment & Plan (12/17/2024 7:07 PM EST): -History of chronically elevated BP following with Cards -Cont med regimen as above Assessment & Plan (06/29/2023 8:57 AM EDT): [...] Assessment & Plan (08/20/2022 7:54 PM EDT): Completed course of abx and symptoms have drastically improved per pt Established with ENT - Dr. Lawler. Plan to follow up with their office PRN Notes from ENT office pending Labile blood [...] Encounters Date Type Department Care Team Description 12/15/2024 2:45 PM EST Office Visit [facility] MED & PEDS [address] [place] [address] Niki Walker FNP Primary hypertension (Primary Dx); Hypercholesterolemia; Coronary artery disease involving [place] coronary artery of [place] heart, unspecified whether angina present; Prediabetes; Liver fibrosis; Healthcare maintenance; Vitamin D insufficiency; History of hepatitis C; Erythrocytosis; Primary insomnia; Erectile dysfunction, unspecified erectile dysfunction type 12/15/2024 Travel 12/14/2024 Telephone [facility] P[facility] [address] [place] [address] Niki Walker FNP Chart prep 12/07/2024 Patient Outreach [facility] [address] [place] [address] Phalen, Niki, FAMILY LAWYER Pre-visit Planning (SDOH screening negative and Tobacco screening negative) 10/08/2024 Refill [facility] [address] [place] [address] Niki Walker FNP 10/03/2024 5:00 PM EDT Office Visit [facility] [address] [place] [address] Whitney Cai MD Poison danny dermatitis (Primary Dx) 10/03/2024 Travel 09/19/2024 Telephone [facility] CHC MED & PEDS [address] [place], [place] [phone] Niki Walker FNP from Last 3 Months Immunizations Immunization Administration Dates Next Due Tdap 01/13/2018,03/07/2013 Zoster, [...] Mass Index 22.45 12/15/2024 2:42 PM EST Plan of Treatment Upcoming Encounters Date Type Department Care Team (Late st Contact Info) Description 02/23/2025 1:45 PM EST Office Visit [facility] CHC MED & PEDS [address] [place] [address] Niki Walker, FAMILY LAWYER [address] [place] [address] Health Maintenance Due Date Last Done Comments CT Colonography 1951 Dental Prophylaxis 1950 FIT DNA/Cologuard 1950 FIT 1950 FOBT 1950 Sigmoidoscopy 1950 Dental X-Ray: Bitewings 12/14/2008 12/14/2007 Dental X-Ray: Full Mouth 02/27/2019 02/27/2016 Dental Oral Exam 06/28/2024 12/29/2023, , 02/27/2016, Additional history exists Diabetes: Hemoglobin A1C 06/28/2024 024, 12/22/2022, 12/01/2021 Influenza Vaccine (#1) 2025 Postp oned from 10/09/2024 (Patient Refused) Tobacco Screening 10/03/2025 10/03/2024 SDOH Screening 12/07/2025 12/07/2024 Alcohol/Substance Use Screening 12/15/2025 12/15/2024 Depression Screening 12/15/2025 12/15/2024, 12/16/19 25 COVID-19 Vaccine (3 - season) 2025 07/10/2020, 06/12/2020 Postponed from 10/09/2024 (Patient Refused) Hepatitis A Vaccines (1 of 2 - Risk 2-dose series) 12/17/2025 Postponed from 10/31/1970 (Patient Refused) Hepatitis B Vaccines (1 of 3 - Risk 3-dose series) 12/17/2025 Postponed from 2011 (Patient Refused) Pneumococcal Vaccine: 50+ Years (1 of 2 - PCV) 12/17/2025 Postponed from 10/31/1970 (Patient Refused) RSV Patients and Patients Aged 60 years or older (1 - Risk 60-74 years 1-dose series) 12/17/2025 Postponed from 2011 (Patient Refused) Zoster Vaccines (2 of 3) 12/17/2025 08/19/2016 Pos tponed from 10/14/2016 (Patient Refused) Colonoscopy 03/17/2026 03/17/2023 Colorectal Cancer Screening 03/17/2026 DTaP/Tdap/Td Vaccines (3 - Td or Tdap) 01/14/2028 01/13/2018, 03/07/2013 Lipid Panel 11/09/2028 11/10/2023, 05/02/2023, 12/22/2022, Additional history exists HIB Vaccines Aged Out No longer eligi ble based on patient's age to complete this topic HPV Vaccines Aged Out No longer eligi ble based on patient's age to complete this topic IPV Vaccines Aged Out No longer eligi ble based on patient's age to complete this topic Meningococcal B Vaccine Aged Out No l onger eligible based on patient's age to complete [...] Procedure Name Priority Date/Time Associated Diagnosis Comments PERIODIC ORAL EVALUATION - ESTABLISHED PATIENT Routine 12/29/2023 11:00 AM EST LIPID PANEL, [...] 12:35 PM EDT) Triglycerides 82 <150 mg/dL [facility] Comment:Desirable Triglyceri de: less than 150 mg/dLBorderline High Triglyceride 150-199 mg/dLHigh Triglyceride: 200-499 mg/dLVery High Triglyceride: greater than or equal to 5OO mg/dL Cholesterol 118 <200 mg/dL [facility] Comment:Desirable Cholestero l: less than 200 mg/dLBorderline High Cholesterol: 200-239 mg/dLHigh Cholesterol: greater than 239 mg/dL LDL Cholesterol Calculated 60 <100 mg/dL [facility] Comment:Desirable LDL: less than 100 mg/dLNear Optimal/Above Optimal LDL: 110- 129 mg/dLBorderline High LDL: 130-159 mg/dLHigh LDL: 160-189 mg/dLVery High LDL: greater than or equal to 190 mg/dL HDL Cholesterol 42 >40 mg/dL [facility] Comment:Desirable HDL: great er than 40 mg/dL Note: This HDL assay may give artificially low results in patients with liver disease. Blood Venous blood specimen / Unknown 11/10/2023 12:35 PM EDT 11/10/2023 1:43 PM EDT us Niki Walker FAMILY LAWYER LAB BLOOD ORDERABLES Final Res ult [facility] [address] [place] [address] [phone] * (ABNORMAL) Hemoglobin A1c (06/29/2023 11:36 AM EDT) Hemoglobin A1c 6.1(H) <6.0 % [facility] Comment:Hemoglobin A1C Refer ence Range Adults: 4.8 - 6.0 % Non diabetic: < 6.0 % Goal: < 7.0 %Additional Action Suggested: > 8.0 %Note: Hemoglobin A1c results are invalid for patients with abnormal amounts of HbF. Blood transfusions may impact the HbA1c concentration in the patient sample. Estimated Average Glucose 128 mg/dL [facility] Comment:eAG = Estimated ave rage glucose which is %A1C expressed asaverage glucose, using the formula of the B9M-VstakpqEwlooor Glucose study (ADAG), Diabetes Care, Vol.31,#8,Sep. 2007 Blood Venous blood specimen / Unknown 06/29/2023 11:36 AM EDT 06/29/2023 1:08 PM EDT Niki Walker FAMILY LAWYER LAB BLOOD ORDERABLES Final Res ult Performing Organization Address [facility] Co de Phone Number [facility] [address] [place] [address] [phone] * Hm Colonoscopy (03/17/2023 10:13 PM EST) Historical Provider HEALTH MAINTENANCE Final Result from Last 3 Months or Most Recently Relevant to Health Maintenance Insurance MEDICARE [facility] STANDARD DENTAL - HSN FULL (MEDICAID) Care Teams Marketing And Outreach Coordinator Relationship Specialty Start Date End Date Niki Walker FNP [address] [place], [place] PCP - General Family Medicine 11/25/21
--- OUTSIDE RECORDS SUMMARY | 2024-12-18 15:29 | XMS_ITS | Encounter Summary ---
Author Organization [employer] Address [address] [facility] [address]t [place] [address] Care Team Providers Care Siebel Solution Architect Name Role Phone Niki Walker Primary Care Provider [phone] Reason for Visit * Reason Comments Med Refill Encounter Details Date Type Department Care Team ([facility] st Contact Info) Description 10/08/2024 Refill [facility] [address] [place] [address] Niki Walker FNP [address] [place] [address] Social History Tobacco Use Types Packs/Day Years [...] Office Visit [facility] & [facility]EDS [address] [place] [address] Niki Walker FNP [address] [place] [address] documented as of this encounter Visit Diagnoses Not on filedocumented in this encounter Additional Health Concerns Assessment Noted Time PHQ-9 Depression Total Score: 0 08/21/19 23 10:26 AM EDT documented as of this encounter Care Teams Siebel Solution Architect Relationship Specialty Start Date End Date Niki Walker FNP [address] [place] [address] PCP - General Family Medicine 11/25/21 documented as of this encounter
--- OUTSIDE RECORDS SUMMARY | 2024-12-18 15:29 | XMS_ITS | Encounter Summary ---
Author Organization [employer] Address [address] [facility] [address] [place] [address] Care Team Providers Care Clay Thrower Name Role Phone Niki Walker Primary Care Provider [phone] Reason for Visit * Reason Comments Med Refill Encounter Details Date Type Department Care Team ([facility] st Contact Info) Description 09/03/2024 Refill [facility] [address] [place] [address] Niki Walker FNP [address] [place] [address] Social History Tobacco Use Types Packs/Day Years [...] Description 02/23/2025 1:45 PM EST Office Visit [facility] MED & PEDS [address] [place] [address] Niki Walker FNP [address] [place] [address] documented as of this encounter Visit Diagnoses Not on filedocumented in this encounter Additional Health Concerns Assessment Noted Time PHQ-9 Depression Total Score: 0 08/21/19 23 10:26 AM EDT documented as of this encounter Care Teams Clay Thrower Relationship Specialty Start Date End Date Niki Walker FNP [address] [place] [address] PCP - General Family Medicine 11/25/21 documented as of this encounter
--- OUTSIDE RECORDS SUMMARY | 2024-12-18 15:29 | XMS_ITS | Encounter Summary ---
Author Organization [employer] Address [address] [facility] [address] [place] [address] Care Team Providers Care Bender Machine Operator Name Role Phone Niki Walker Primary Care Provider Reason for Visit * Reason Onset Date Comments Chart prep 12/14/2024 Encounter Details Date Type Department Care Team ([facility] st Contact Info) Description 12/14/2024 Telephone [facility] MED & PEDS [address] [place] [address] Niki Walker FNP [address] [place] [address] Chart prep Social History Tobacco Use Types Packs/Day Years [...] encounter Miscellaneous Notes * Telephone Encounter - Mouna Patterson [place] - 12/14/2024 11:20 AM EST Chart Prep Labs: done Images: done Referrals: complete Vaccines due: Covid, Flu, PCV20, Hep B, Hep A, RSV, and Zoster Screenings: not applicable Overdue care gaps: A1c, Glucose, SBIRT, and PHQ-9 documented in this encounter Plan of Treatment Upcoming Encounters Date Type Department Care Team ([facility] st Contact Info) Description 02/23/2025 1:45 PM EST Office Visit [facility] & PED[facility] [address] [place] [address] Niki Walker FNP [address] [place] [address] documented as of this encounter Visit Diagnoses Not on filedocumented in this encounter Additional Health Concerns Assessment Noted Time PHQ-9 Depression Total Score: 0 08/21/19 23 10:26 AM EDT documented as of this encounter Care Teams Bender Machine Operator Relationship Specialty Start Date End Date Niki Walker FNP [address] [place] [phone] PCP - General Family Medicine 11/25/21 documented as of this encounter
--- OUTSIDE RECORDS SUMMARY | 2024-12-18 15:29 | XMS_ITS | Encounter Summary ---
Author Organization [employer] Address 75 [facility] 7t [place] [address] Care Team Providers Care Print Shop Assistant Name Role Phone Niki Walker NYDIA Primary Care Provider [phone] Encounter Details Date Type Department Care Team (Latest Contact Info) Description 12/15/2024 Travel Social History Tobacco Use Types Packs/Day Years [...] PM EDT documented as of this encounter Functional Status * Over the past 2 weeks, how often have you been bothered by any of the following problems? Question Answer Date of Assessment Author Patient Health Questionnaire-2 Score 0 08/2024 4:32 PM Snow Rayo [place] * Little interest or pleasure in doing things Answer Date of Assessment Author Not at all 12/15/2024 4:32 PM Scott Rayo [place] * Feeling down, depressed, or hopeless [...] Rayo [place] documented as of this encounter Plan of Treatment Upcoming Encounters Date Type Department Care Team (Late st Contact Info) Description 02/23/2025 1:45 PM EST Office Visit [facility] MED & PEDS [address] [place] [address] Niki Walker FNP [address] [place] [address] documented as of this encounter Visit Diagnoses Not on filedocumented in this encounter Additional Health Concerns Assessment Noted Time PHQ-9 Depression Total Score: 0 12/16/19 25 4:32 PM EST documented as of this encounter Care Teams Print Shop Assistant Relationship Specialty Start Date End Date Niki Walker FNP [address] [place] [address] PCP - General Family Medicine 11/25/21 documented as of this encounter
--- OUTSIDE RECORDS SUMMARY | 2024-12-18 15:29 | XMS_ITS | Encounter Summary ---
Author Organization [employer] Address 75 [facility] 7t [place] [address] Care Team Providers Care Diet Attendant Name Role Phone Niki Walker Primary Care Provider [phone] Encounter Details Date Type Department Care Team (Late Contact Info) Description 06/26/2022 Orders Only [facility] MEDICINE [address] [place] [address] Luz Maria Gaming LPN Social History Tobacco [...] Description 02/23/2025 1:45 PM EST Office Visit [facility] CH[facility] MED & PEDS [address] [place], [place] [phone] Niki Walker FNP [address] [place] [address] documented as of this encounter Visit Diagnoses Not on filedocumented in this encounter Care Teams Diet Attendant Relationship Specialty Start Date End Date Niki Walker FNP [address] [place] [address] PCP - General Family Medicine 11/25/21 documented as of this encounter
--- OUTSIDE RECORDS SUMMARY | 2024-12-18 15:29 | XMS_ITS | Encounter Summary ---
Author Organization [employer] Address 75 [facility] 7t [place] [address] Care Team Providers Care Logistic Specialist Name Role Phone Aaron Niki WELDING MACHINE OPERATOR ULTRASONIC Primary Care Provider Encounter Details Date Type Department Care Team (Late st Contact Info) Description 11/08/2023 Orders Only [facility] CHC MED & PEDS [address] [place], [place] [phone] Provider, MD Keon Social History Tobacco Use [...] Description 02/23/2025 1:45 PM EST Office Visit [facility] MED & PEDS [address] [place] [address] Niki Walker FNP [address] [place] [address] documented as of this encounter Procedures Procedure [...] documented as of this encounter Care Teams Logistic Specialist Relationship Specialty Start Date End Date Niki Walker FNP [address] [place] [address] PCP - General Family Medicine 11/25/21 documented as of this encounter
--- OUTSIDE RECORDS SUMMARY | 2024-12-18 15:29 | XMS_ITS | Encounter Summary ---
Author Organization [employer] Address 75 [facility] 7t [place] [address] Care Team Providers Care Tool Carrier Name Role Phone Niki Walker Primary Care Provider [phone] Encounter Details Date Type Department Care Team (Late st Contact Info) Description 01/29/2022 Orders Only [facility] [address] [place] [address] Luz Maria Gaming LPN Social History Tobacco [...] Description 02/23/2025 1:45 PM EST Office Visit [facility] CH[facility] MED & PEDS [address] [place] [address] Niki Walker FNP [address] [place] [address] documented as of this encounter Procedures Procedure Name Priority Date/Time Associated Diagnosis Comments URINALYSIS WITH REFLEX MICROSCOPIC Routine 05/26/2022 11:39 PM EDT documented in this encounter Results * Urinalysis with reflex microscopic (05/26/2022 11:39 PM EDT) Color Urine Yellow [facility] Appearance Urine Clear [facility] PH 7.0 5.0 - 9.0 [facility] Glucose Urine UA Negative Negative mg/dL [facility] Urine Blood Negative Negative [facility] Specific [place] - Urine <=1.005 1.005 - 1.025 [facility] Urine Protein Negative Neg-Trace mg/dL [facility] Urine Ketones Negative Negative mg/dL [facility] Nitrite Urine Negative Negative [facility] Leukocyte Esterase Urine Negative Negative [facility] 05/26/2022 11:3 9 PM EDT 05/26/2022 11:43 PM EDT Narrative [facility] - 05/26/2022 11:47 PM EDT [id number], Clean Catch [facility] External Provider LAB URI NE ORDERABLES Final Result Performing Organization Address City/State/[facility] Co de Phone Number [facility] [address] [place] [address] [phone] documented in this encounter Visit Diagnoses Not on filedocumented in this encounter Care Teams Tool Carrier Relationship Specialty Start Date End Date Niki Walker FNP [address] [place] [address] PCP - General Family Medicine 11/25/21 documented as of this encounter
--- OUTSIDE RECORDS SUMMARY | 2024-12-18 15:29 | XMS_ITS | Encounter Summary ---
Author Organization [employer] Address 75 [facility] 7t [place] [address] Care Team Providers Care President & Founder Name Role Phone Niki Walker Primary Care Provider [phone] Reason for Visit * Reason Comments Med Refill Encounter Details Date Type Department Care Team (Late st Contact Info) Description 01/29/2022 Refill [facility] MEDICINE [address] [place] [address] Niki Walker FNP [address] [place] [address] Social History Tobacco Use Types Packs/Day Years [...] was placed to Pharmacy, Spoke to Jes Tape Making Machine Operator. Jes agreeable to remove Brilinta 90 mg Tab from med profile and will send Rosuvastatin Calcium (Crestor) 40 mg tab to Glass Forming Engineer. documented in this encounter Plan of Treatment Upcoming Encounters Date Type Department Care Team (Late st Contact Info) Description 02/23/2025 1:45 PM EST Office Visit [facility] MED & PEDS [address] [place] [address] Niki Walker FNP [address] [place] [address] documented as of this encounter Visit Diagnoses Not on filedocumented in this encounter Care Teams President & Founder Relationship Specialty Start Date End Date Niki Walker FNP [address] [place] [address] PCP - General Family Medicine 11/25/21 documented as of this encounter
[2024-12-18 16:02] LABS: MANUAL DIFF FLAG NO
[2024-12-18 16:09] LABS: Hematocrit 42.7 % (42.0-52.0); Hemoglobin 13.3 g/dl (14.0-18.0); Imm Gran Abs Auto 0.02 X10*3/uL (0.00-0.03); Imm Gran Pct Auto 0.3 % (0.0-0.4); Lymphocytes Absolute Auto 1.9 X10*3/uL (1.2-4.9); Mean Corpuscular HGB Conc 31.1 g/dl (31.0-36.0); Mean Corpuscular Hemoglobin 28.2 pg (27.0-33.0); Mean Corpuscular Volume 90.7 fL (80.0-98.0); NRBC Abs Auto 0.000 X10*3/uL (0.0-0.012); NRBC Pct Auto 0.0 /100WBC (0.0-0.2); Platelet Count 208 X10*3/uL (160-400); Red Blood Count 4.71 X10*6/uL (4.60-5.80); White Blood Count 6.6 X10*3/uL (4.8-10.8)
[2024-12-18 16:17] LABS: Hemoglobin A1C 97.3333 umol/L
[2024-12-18 16:55] LABS: Alanine Aminotransferase 24 U/L (0-40); Albumin Level 4.5 g/dL (3.5-5.0); Alkaline Phosphatase 73 U/L (39-117); Anion Gap 13 (12-20); Aspartate Amino Transferase 30 U/L (5-37); Blood Urea Nitrogen 8 mg/dL (9-16); Calcium 9.6 mg/dL (8.4-10.2); Carbon Dioxide 28 mmol/L (22-29); Chloride 106 mmol/L (96-108); Cholesterol 105 mg/dL (<200); Estimated Glomerular Filt Rate > 60; HDL Cholesterol 34 mg/dL (>40); Potassium 4.3 mmol/L (3.3-5.1); Sodium 143 mmol/L (135-145); Total Protein 7.5 g/dL (6.5-8.0); Triglycerides 75 mg/dL (<150)
[2024-12-18 18:01] LABS: Prostate Specific Antigen 0.55 ng/mL (<0.05-4.0)
== END 2024-12-18 13:22 | disposition home or self-care (01) ==
LOC: HO.HHCL 13:21
PROVIDERS: PCP Registered Nurse; Visit Provider Registered Nurse
DX: Z00.00 Encounter for general adult medical examination without abnormal findings (principal); Z12.5 Encounter for screening for malignant neoplasm of prostate; Z13.29 Encounter for screening for other suspected endocrine disorder; Z13.1 Encounter for screening for diabetes mellitus; Z13.6 Encounter for screening for cardiovascular disorders; E55.9 Vitamin D deficiency, unspecified
CPT/HCPCS: 36415; 80053; 80061; 82306; 83036; 84153; 84443; 85025

== ENCOUNTER 2024-12-19 11:15 | Outpatient (REF) | payer MEDICARE, MEDICAID, SELFPAY ==
--- OUTSIDE RECORDS SUMMARY | 2024-02-22 09:00 | XMS_ITS ---
Author Organization [facility] Address [address] [place] [id number] Care Team Providers Care Conveyor Worker Name Role Phone Trell MAYORGA, Whitney Primary Care Provider Kym Richard Payne [phone] REASON FOR VISIT HEP C Encounters Encounter Location Date Provider Diagnosis [facility] [address] [place] [id number] 02/22/2024 Richard Lu Plan Of Treatment No Information Progress Notes * RACHELLE LANGOB: 2 (74 yo M)Acc No.[id number]:02/22/2024 Progress Notes Patient: Ben PINEDA BECKY Provider: Ervin Lu MD :1950 A ge:73 Y S ex:Male Date:02/22/2024 Address:[address] [place], [place] [id number] Pcp:Whitney Cai MD Subjective: * Chief Complaints: * 1 . HEP C. * Medical History: Objective: * Vitals: Assessment: Plan: * Treatment: * * The named appointment provid er may or may not be the originator of this progress note, and it is not deemed complete until electronically signed by the appointment provider. Sign off status: Pending * Provider: Ervin Lu MD Date: 0 02/22/2024 Generated for Nawafi madelyn/Tierrag/eTransmitting on: 02/19/2024 01:29 PM EST
--- OUTSIDE RECORDS SUMMARY | 2024-12-15 14:45 | XMS_ITS | Encounter Summary ---
Author Organization [employer] Address [address] [place] [address] Care Team Providers Care Fishing Tool Supervisor Name Role Phone Niki Walker Primary Care Provider [phone] Encounter Details Date Type Department Care Team ([facility] st Contact Info) Description 12/15/2024 2:45 PM EST Office Visit [facility] [address] [place], [place] [phone] Niki Walker FNP [address] [place] [address] Primary hypertension (Primary Dx); Hypercholesterolemia; Coronary artery disease involving [place] coronary artery of [place] heart, unspecified whether angina present; Prediabetes; Liver fibrosis; Healthcare maintenance; Vitamin D insufficiency; History of hepatitis C; Erythrocytosis; Primary insomnia; Erectile dysfunction, unspecified erectile dysfunction type Social History Tobacco Use Types Packs/Day Years Used Date Smoking Tobacco: Never Smokeless Tobacco: Never Alcohol Use Standard Drinks/Week Comments Never 0 (1 standard drink = 0.6 oz pur e alcohol) Depression Answer Date Recorded Patient Health Questionnaire-9 Score 0 12/15/2024 Patient Health Questionnaire-9 Score 0 12/15/2024 Last PHQ-9: Questionnaire Data Not on file 1 02/15/2024 Housing Stability Answer Date Recorded What is your housing situation today? I have jeannine tilley 12/07/[address] you li ve. Do you have problems with any of the following? None of the above 12/07/2024 Food Insecurity Answer Date Recorded Within the past 12 months, y ou worried that your food would run out before you got money to buy more: Never True 12/07/2024 Within the past 12 months,th e food you bought just didn't last and you didn't have enough money to get more: Never True Transportation Answer Date Recorded In the past 12 months, has l ack of transportation kept you from medical appts, meetings, work or from getting things needed for daily living? No 12/07/2024 Utilities Answer Date Recorded In the past 12 months, has t he electric, gas, oil or water company threatened to shut off services in your home? No 12/07/2024 Depression Answer Date Recorded Patient Health Questionnaire-2 Score 0 12/15/2024 Internet Access Answer Date Recorded Internet Access Q1 Yes 12/07/2024 Internet Access Q2 Not on file 12/07/2024 Sex and Gender Information Value Date Recorded Sex Assigned at Male 12/08/2021 10:16 AM EDT Legal Sex Male 10:16 AM EDT Gender Identity Male 12/08/2021 10:16 AM EDT Sexual Orientation Straight 11/08/2023 2: 12 PM EDT documented as of this encounter Last Filed Vital Signs Vital Sign Reading Time Taken Comments Blood Pressure 145/69 12/15/2024 2:42 PM EST Pulse 56 12/15/2024 2:42 PM EST Temperature 36.4 C (97.6 F) 12/15/2024 2:42 PM EST Respiratory Rate 20 12/15/2024 2:42 PM EST Oxygen Saturation 96% 12/15/2024 2:42 PM EST Inhaled Oxygen Concentration - - Weight 68.9 kg (152 lb) 12/15/2024 2:42 PM EST Height 175.3 cm (5' 9 ) 12/15/2024 2:42 PM EST Body Mass Index 22.45 12/15/2024 2:42 PM EST documented in this encounter Functional Status * Over the past 2 weeks, how often have you been bothered by any of the following problems? Question Answer Date of Assessment Author Patient Health Questionnaire-2 Score 0 08/2024 4:32 PM EST Snow Pabon [place] * Little interest or pleasure in doing things Answer Date of Assessment Author Not at all 12/15/2024 4:32 PM EST Scott Pabon MA * Feeling down, depressed, or hopeless Answer Date of Assessment Author Not at all 12/15/2024 4:32 PM Scott Rayo [place] * Trouble falling or staying asleep, or sleeping too much Answer Date of Assessment Author Not at all 12/15/2024 4:32 PM Scott Rayo [place] * Feeling tired or having little energy Answer Date of Assessment Author Not at all 12/15/2024 4:32 PM Scott Rayo [place] * Poor appetite or overeating Answer Date of Assessment Author Not at all 12/15/2024 4:32 PM Scott Raoy MA * Feeling bad about yourself - or that you are a failure or have let yourself or your family down Answer Date of Assessment Author Not at all 12/15/2024 4:32 PM Scott Rayo MA * Trouble concentrating on things, such as reading the newspaper or watching television Answer Date of Assessment Author Not at all 12/15/2024 4:32 PM Scott Rayo MA * Moving or speaking so slowly that other people could have noticed? Or the opposite - being so fidgety or restless that you have been moving around a lot more than usual. Answer Date of Assessment Author Not at all 12/15/2024 4:32 PM Scott Rayo MA * Thoughts that you would be better off or hurting yourself in some way Answer Date of Assessment Author Not at all 12/15/2024 4:32 PM Scott Rayo MA * Patient Health Questionnaire-9 Score Answer Date of Assessment Author 0 12/15/2024 4:32 PM Scott Rayo MA documented as of this encounter Progress Notes * Niki Walker, NYDIA - 12/15/2024 2:45 PM EST Subjective Sukhdeep Kan is a 74 y.o. male w/ PMH RI, hypertension, CAD, prediabetes, HLD, and erythrocytosiswho presents to the office for a comprehensive medical review. Interim History: Last PCP visit: 11/05/23. Continues to follow with multiple specialists. Assessment/plan below updated to reflect most recent available consult notes. Poison danny dermatitis in Sep 2024 Current concerns: Erectile dysfunction: reports able to initiate an erection, but difficulty maintaining an erection.Onset: months - years. Goal for improved sexual health. Denies any abnormalities noted with anatomy. No bumps, rashes, or curvatures. Longstanding history of hypertension and s/p RI. No known history of angina, does not use nitroglycerin. Surgical History[1] Family History[2] Review of Systems Constitutional: Negative for appetite change and fever. HENT: Negative for congestion. Respiratory: Negative for cough, shortness of breath and wheezing. Cardiovascular: Negative for chest pain, palpitations and leg swelling. Gastrointestinal: Negative for blood in stool, constipation, diarrhea, nausea and vomiting. Endocrine: Negative for polydipsia, polyphagia and polyuria. Genitourinary: Negative for penile pain, penile swelling and scrotal swelling. Erectile dysfunction Skin: Negative for wound. Neurological: Negative for dizziness. Psychiatric/Behavioral: Negative for suicidal ideas. Objective Visit Vitals BP (!) 145/69 (BP Location: Left arm, Patient Position: Sitting, BP Cuff Size: Adult) Pulse 56 Temp 97.6 ??F (36.4 ??C) (Oral) Resp 20 Ht 5' 9 (1.753 m) Wt 152 lb (68.9 kg) SpO2 96% BMI 22.45 kg/m?? Smoking Status Never BSA 1.83 m?? Physical Exam Vitals reviewed. Constitutional: Appearance: Normal appearance. HENT: Head: Atraumatic. Right Ear: Tympanic membrane, ear canal and external ear normal. Left Ear: Tympanic membrane, ear canal and external ear normal. Nose: No congestion. Mouth/Throat: Mouth: Mucous membranes are moist. Comments: Upper dentures Cardiovascular: Rate and Rhythm: Normal rate and regular rhythm. Pulmonary: Effort: Pulmonary effort is normal. Breath sounds: Normal breath sounds. Abdominal: General: Abdomen is flat. There is no distension. Palpations: Abdomen is soft. Genitourinary: Comments: Declined Musculoskeletal: Cervical back: Normal range of motion. Skin: General: Skin is warm. Neurological: Mental Status: He is alert and oriented to person, place, and time. Psychiatric: Mood and Affect: Mood normal. Behavior: Behavior normal. Assessment/Plan Problem List Items Addressed This Visit Cardiac and Vasculature Coronary artery disease Current Assessment & Plan - [place] [facility] [place] - Dr. Simmons (last consult Mar 2024) - history of CAD with stenting of LAD for acute anterior STEMI in 2020 - Continue lifelong aspirin - LDL goal < 70, well controlled Lab Results Component Value Date LDLCHOLCAL 60 11/10/2023 Hypercholesterolemia Overview Lab Results Component Value Date CHOL 118 11/10/2023 CHOL 107 06/29/2023 CHOL 202 (H) 12/22/2022 TRIG 82 11/10/2023 TRIG 74 06/29/2023 TRIG 129 12/22/2022 HDL 42 11/10/2023 HDL 36 (L) 06/29/2023 HDL 30 (L) 12/22/2022 LDLCHOLCAL 60 11/10/2023 LDLCHOLCAL 57 06/29/2023 LDLCHOLCAL 147 (H) 12/22/2022 -Cont rosuvastatin 40mg nightly -continue lifestyle modification Current Assessment & Plan Well controlled, repeat fasting lipid panel ordered Hypertension - Primary Overview Pt sustained RI on 03/17/2020 - evaluated [place] [facility] where underwent stent placement (Synergy YAN) to LAD 2-D Echo (06/2021) showed normal LVEF 60-65%, mild septal asymmetric hypertrophy & no significant valve disease. Continue following with [facility] [place] - Dr. Simmons. History of markedly elevated BP with readings SBP 170s-180s. Pt reports it has been this way for most of his life and has been evaluated by many doctors in the past BP closer to goal today Denies any chest pain, palpitations, LOMBARDI, blurry vision, SOB, N/V/D [facility] - Dr. Conner. CEE 05/24/24 - NO hypertensive retinopathy Continue current med regimen: amlodipine 5mg BID carvedilol 12.5mg BID losartan 50mg BID rosuvastatin 40mg nightly aspirin 81mg daily -ED precautions Current Assessment & Plan -History of chronically elevated BP following with Cards -Cont med regimen as above Endocrine and Metabolic Prediabetes Current Assessment & Plan Lab Results Component Value Date HGBA1C 6.1 (H) 06/29/2023 - Lifestyle interventions encouraged - Repeat blood work Vitamin D insufficiency Current Assessment & Plan Lab Results Component Value Date [id number] 21.4 (L) 11/10/2023 - Continues with Vit D supplement 1000 units daily. - Repeat Vit D level Relevant Medications cholecalciferol (Vitamin D3) 25 MCG (1000 UT) tablet Other Relevant Orders Vitamin D, 25-Hydroxy, Total, Immunoassay Gastrointestinal and Abdominal Liver fibrosis Overview Followed by [facility] (Dr. Lu) Jan 2023: Abd US w/ elastography, median stiffness is 1.55 ms. Measurements rule out compensated advanced chronic liver disease. Mar 2023: Lab work c/w liver fibrosis, F3 History of hepatitis C Current Assessment & Plan - Followed by [facility] - Dr. Lu - History of chronic Hep C - Consult May 2024 w/ plan to repeat abdominal US - Offered repeat Hep C testing, pt declines as labs ordered through GI Genitourinary and Reproductive Erectile dysfunction Current Assessment & Plan - Difficulties with maintaining erections for months - years - Denies any concerns with anatomy, exam declined. Plan to test PSA, although denies any urinary symptoms or straining to void - Plan: start sildenafil 25mg daily PRN 60 mins before sexual activity. Reviewed med safety and SE. - Follow up in 8 weeks, sooner as needed. Relevant Medications sildenafil (Viagra) 25 MG tablet Health Encounters Healthcare maintenance Overview Colonoscopy: last 03/17/[address] Lu. (+) for diverticulosis, hemorrhoids, and colon polyps. Follow up in 3 years (hx tubular adenoma) Dental: Referral to [facility] placed 06/28/23 [facility]: [facility] - Dr. Conner. CEE 05/24/24 Last comprehensive review: 12/15/24 Relevant Orders Albumin, Random Urine W/Creatinine Lipid Panel, Standard Hemoglobin A1c TSH with Reflex to Free T4 Comprehensive Metabolic Panel CBC auto differential Vitamin D, 25-Hydroxy, Total, Immunoassay PSA,Total Chlamydia/Trichomonas/Neisseria gonorrhoeae, PCR, Urine Hematology and Neoplasia Erythrocytosis Overview -History of erythrocytosis, previously [place] [facility] [place]Onc Current Assessment & Plan - Repeat CBC Sleep Insomnia Current Assessment & Plan - Well controlled with trazodone 100mg nightly PRN Follow up: 2 months, sooner as needed [1] No past surgical history on file. [2] No family history on file. documented in this encounter Miscellaneous Notes * Assessment & Plan Note - NYDIA Quintero - 12/17/2024 7:14 PM ESTAssociated Problem(s): Erectile dysfunction - Difficulties with maintaining erections for months - years - Denies any concerns with anatomy, exam declined. Plan to test PSA, although denies any urinary symptoms or straining to void - Plan: start sildenafil 25mg daily PRN 60 mins before sexual activity. Reviewed med safety and SE. - Follow up in 8 weeks, sooner as needed. * Assessment & Plan Note - NYDIA Quintero - 12/17/2024 7:12 PM ESTAssociated Problem(s): Insomnia - Well controlled with trazodone 100mg nightly PRN * Assessment & Plan Note - NYDIA Quintero - 12/17/2024 7:11 PM ESTAssociated Problem(s): Erythrocytosis - Repeat CBC * Assessment & Plan Note - NYDIA Quintero - 12/17/2024 7:08 PM ESTAssociated Problem(s): Hypercholesterolemia Well controlled, repeat fasting lipid panel ordered * Assessment & Plan Note - NYDIA Quintero - 12/17/2024 7:07 PM ESTAssociated Problem(s): Hypertension -History of chronically elevated BP following with Cards -Cont med regimen as above * Assessment & Plan Note - NYDIA Quintero - 12/17/2024 7:03 PM ESTAssociated Problem(s): History of hepatitis C - Followed by [facility] - Dr. Lu - History of chronic Hep C - Consult May 2024 w/ plan to repeat abdominal US - Offered repeat Hep C testing, pt declines as labs ordered through GI * Assessment & Plan Note - NYDIA Quintero - 12/17/2024 7:00 PM ESTAssociated Problem(s): Coronary artery disease - Following [place] [facility] [place] - Dr. Simmons (last consult Mar 2024) - history of CAD with stenting of LAD for acute anterior STEMI in 2020 - Continue lifelong aspirin - LDL goal < 70, well controlled Lab Results Component Value Date LDLCHOLCAL 60 11/10/2023 * Assessment & Plan Note - NYDIA Quintero - 12/17/2024 6:58 PM ESTAssociated Problem(s): Vitamin D insufficiency Lab Results Component Value Date [id number] 21.4 (L) 11/10/2023 - Continues with Vit D supplement 1000 units daily. - Repeat Vit D level * Assessment & Plan Note - NYDIA Quintero - 12/15/2024 12:50 PM EST Associated Problem(s): Prediabetes Lab Results Component Value Date HGBA1C 6.1 (H) 06/29/2023 - Lifestyle interventions encouraged - Repeat blood work documented in this encounter Plan of Treatment Upcoming Encounters Date Type Department Care Team (Late st Contact Info) Description 02/23/2025 1:45 PM EST Office Visit [facility] [address] [place], [place] [phone] Niki Walker, NYDIA [address] [place] [address] Scheduled Orders Name Type Priority Associated Diagnoses Orde r Schedule Albumin, Random Urine W/Creatinine Lab Routine Healthcare maintenance Expected: 12/15/2024 (Approximate), Expires: 12/15/2025 Chlamydia/Trichomonas/ Neisseria gonorrhoeae, PCR, Urine Lab Routine Healthcare maintenance Expected: 12/15/2024 (Approximate), Expires: 12/15/2025 documented as of this encounter Procedures Procedure Name Priority Date/Time Associated Diagnosis Comments VITAMIN D,25-OH,TOTAL,IA Routine 12/18/2024 1:32 PM EST Healthcare maintenance Vitamin D insufficiency TSH W/REFLEX TO FT4 Routine 12/18/2024 1 :32 PM EST Healthcare maintenance CBC WITH AUTO DIFFERENTIAL Routine 12/18/2024 1:32 PM EST Healthcare maintenance PSA, TOTAL Routine 12/18/2024 1:32 PM EST Healthcare maintenance HEMOGLOBIN A1C Routine 12/18/2024 1:32 PM EST Healthcare maintenance LIPID PANEL, STANDARD Routine 12/18/2024 1:32 PM EST Healthcare maintenance COMPREHENSIVE METABOLIC PANEL Routine 12/18/2024 1:32 PM EST Healthcare maintenance documented in this encounter Results * PSA,Total (12/18/2024 1:32 PM EST) Prostate Specific Antigen 0.55 <0.05 - 4.0 ng/mL [facility] Comment:PSA methodology: Abb eliza Alimatt i ChemiluminescentMicroparticle Immunoassay (CMIA) Blood Venous blood specimen / Unknown 12/18/2024 1:32 PM EST 12/18/2024 3:57 PM EST Niki STAFFORD LAB BLOOD ORDERABLES Final Res ult [facility] [address] [place] [address] [phone] * Vitamin D, 25-Hydroxy, Total, Immunoassay (12/18/2024 1:32 PM EST) Vitamin D 25-OH Total 71.2 >30 ng/mL [facility] Comment: Health Based Reference Values*< 20 ng/mL Nhbfvgyre84-21 ng/mL Insufficient> 30 ng/mL Sufficient*Raghu TAYLOR. N Engl J Med. 2007;357:266-280There is no well-established upper level of normal vitamin Dlevels. Some laboratories use 50 ng/mL as an upper limit ofnormal. However, toxicity is patient-dependent and may occurat any level. Careful correlation with the patient'spresentation is necessary and, if there is concern forvitamin D toxicity, treatment should be consideredirrespective of the serum level.Care must be taken in interpreting Vitamin D results fromdifferent laboratories and methodologies. Published datademonstrated that results from patients undergoinghemodialysis may show a negative bias when tested withvarious automated 25-OH vitamin D assays when compared toLC-MS/MS.When testing samples from patients whose predominant form ofVitamin D is Vitamin D2, such as patients receiving VitaminD2 supplementation, results that are subtherapeutic shouldbe confirmed with another method such as LC-MS/MS. Blood Venous blood specimen / Unknown 12/18/2024 1:32 PM EST 12/18/2024 3:[address] [facility] LAB BLOOD ORDERABLES Final Res ult Performing Organization Address [facility]/ZIP Co de Phone Number [facility] [address] [place] [address] [phone] * (ABNORMAL) CBC auto differential (12/18/2024 1:32 PM EST) White Blood Count 6.6 4.8 - 10.8 X10*3/uL [facility] Red Blood Count 4.71 4.60 - 5.80 X10*6/uL [facility] Hemoglobin 13.3(L) 14.0 - 18.0 g/dl [facility] Hematocrit 42.7 42.0 - 52.0 % [facility] Mean Corpuscular Volume 90.7 80.0 - 98.0 fL [facility] Mean Corpuscular Hemoglobin 28.2 27.0 - 33.0 pg [facility] Mean Corpuscular HGB Conc 31.1 31.0 - 36.0 g/dl [facility] Red Cell Distribution Width 13.4 11.0 - 16.0 % [facility] Platelet Count 208 160 - 400 X10*3/uL [facility] Mean Platelet Volume 12.0 9.4 - 12.4 fL [facility] Neutrophils Percent Auto 51.5 45 - 73 % [facility] Imm Gran Pct Auto 0.3 0.0 - 0.4 % [facility] Lymphocytes Percent Auto 28.5 20 - 40 % [facility] Monocytes Percent Auto 17.7(H) 2 - 11 % [facility] Eosinophils Percent Auto 1.5 0 - 4 % [facility] Basophils Percent Auto 0.5 0 - 2 % [facility] NRBC Pct Auto 0.0 0.0 - 0.2 /100WBC [facility] Neutrophils Absolute Auto 3.4 2.0 - 8.3 x10*3/uL [facility] Imm Gran Abs Auto 0.02 0.00 - 0.03 X10*3/uL [facility] Lymphocytes Absolute Auto 1.9 1.2 - 4.9 X10*3/uL [facility] Monocytes Absolute Auto 1.2 0.1 - 1.2 X10*3/uL [facility] Eosinophils Absolute Auto 0.1 0.0 - 0.4 X10*3/uL [facility] Basophils Absolute Auto 0.0 0.0 - 0.2 X10*3/uL [facility] NRBC Abs Auto 0.000 0.0 - 0.012 X10*3/uL [facility] Blood Venous blood specimen / Unknown 12/18/2024 1:32 PM EST 12/18/2024 3:57 PM EST Niki Gutierresjv [employer] LAB BLOOD ORDERABLES Final Res ult [facility] [address] [place] [address] [phone] * (ABNORMAL) Comprehensive Metabolic Panel (12/18/2024 1:32 PM EST) Sodium 143 135 - 145 mmol/L [facility] Potassium 4.3 3.3 - 5.1 mmol/L [facility] Chloride 106 96 - 108 mmol/L [facility] Carbon Dioxide 28 22 - 29 mmol/L [facility] Anion Gap 13 12 - 20 [facility] Urea Nitrogen (BUN) 8(L) 9 - 16 mg/dL [facility] Creatinine, Serum 0.98 0.5 - 1.4 mg/dL [facility] Estimated Glomerular Filt Rate >60 [facility] Comment:Chronic Kidney Disea se: Estimated GFR < 60 mL/min/1.89d4Pobzdh Kidney Disease: Estimated GFR < 15 mL/min/1.73m2 Glucose 100 60 - 115 mg/dL [facility] Calcium 9.6 8.4 - 10.2 mg/dL [facility] Bilirubin, Total 0.5 0.0 - 1.0 mg/dL [facility] Aspartate Amino Transferase 30 5 - 37 U/L [facility] Alanine Aminotransferase 24 0 - 40 U/L [facility] Total Protein 7.5 6.5 - 8.0 g/dL [facility] Albumin Level 4.5 3.5 - 5.0 g/dL [facility] Alkaline Phosphatase 73 39 - 117 U/L [facility] Blood Venous blood specimen / Unknown 12/18/2024 1:32 PM EST 12/18/2024 3:57 PM EST Niki Walker [employer] LAB BLOOD ORDERABLES Final Res ult Performing Organization Address City/[facility]/ZIP Co de Phone Number [facility] [address] [place] [address] [phone] * TSH with Reflex to Free T4 (12/18/2024 1:32 PM EST) TSH reflex Free T4 1.36 0.32 - 4.0 uIU/mL [facility] Blood 12/18/2024 1:32 PM EST 12/18/2024 3:57 PM EST Niki Walker [employer] LAB BLOOD ORDERABLES Final Res ult Performing Organization Address [facility] Co de Phone Number [facility] [address] [place] [address] [phone] * Hemoglobin A1c (12/18/2024 1:32 PM EST) Hemoglobin A1c 6.0 <6.0 % [facility] Comment:Hemoglobin A1C Refer ence Range Adults: 4.8 - 6.0 % Non diabetic: < 6.0 % Goal: < 7.0 %Additional Action Suggested: > 8.0 %Note: Hemoglobin A1c results are invalid for patients with abnormal amounts of HbF. Blood transfusions may impact the HbA1c concentration in the patient sample. Estimated Average Glucose 126 mg/dL [facility] Comment:eAG = Estimated ave rage glucose which is %A1C expressed asaverage glucose, using the formula of the I9Z-[id number] Glucose study (ADAG), Diabetes Care, Vol.31,#8,Sep. 2007 Blood Venous blood specimen / Unknown 12/18/2024 1:32 PM EST 12/18/2024 3:57 PM EST Niki Walker [employer] LAB BLOOD ORDERABLES Final Res ult Performing Organization Address [facility] Co de Phone Number [facility] [address] [place] [address] [phone] * (ABNORMAL) Lipid Panel, Standard (12/18/2024 1:32 PM EST) Triglycerides 75 <150 mg/dL [facility] Comment:Desirable Triglyceri de: less than 150 mg/dLBorderline High Triglyceride 150-199 mg/dLHigh Triglyceride: 200-499 mg/dLVery High Triglyceride: greater than or equal to 5OO mg/dL Cholesterol 105 <200 mg/dL [facility] Comment:Desirable Cholestero l: less than 200 mg/dLBorderline High Cholesterol: 200-239 mg/dLHigh Cholesterol: greater than 239 mg/dL LDL Cholesterol Calculated 56 <100 mg/dL [facility] Comment:Desirable LDL: less than 100 mg/dLNear Optimal/Above Optimal LDL: 110- 129 mg/dLBorderline High LDL: 130-159 mg/dLHigh LDL: 160-189 mg/dLVery High LDL: greater than or equal to 190 mg/dL HDL Cholesterol 34(L) >40 mg/dL [facility] Comment:Desirable HDL: great er than 40 mg/dL Note: This HDL assay may give artificially low results in patients with liver disease. Blood Venous blood specimen / Unknown 12/18/2024 1:32 PM EST 12/18/2024 3:57 PM EST us Niki STAFFORD LAB BLOOD ORDERABLES Final Res ult [facility] [address] [place], [place] [phone] documented in this encounter Visit Diagnoses Diagnosis Primary hypertension- Primary Unspecified essential hypertension Hypercholesterolemia Pure hypercholesterolemia Coronary artery disease involving [place] coronary artery of [place] heart, unspecified whether angina present Prediabetes Other abnormal glucose Liver fibrosis Cirrhosis of liver without mention of alcohol Healthcare maintenance Vitamin D insufficiency History of hepatitis C Personal history of other infectious and parasitic disease Erythrocytosis Polycythemia, secondary Primary insomnia Persistent disorder of initiating or maintaining sleep Erectile dysfunction, unspecified erectile dysfunction type documented in this encounter Additional Health Concerns Assessment Noted Time PHQ-9 Depression Total Score: 0 12/16/19 25 4:32 PM EST documented as of this encounter Care Teams Fishing Tool Supervisor Relationship Specialty Start Date End Date Niki Walker FNP [address] [place] [address] PCP - General Family Medicine 11/25/21 documented as of this encounter
--- OUTSIDE RECORDS SUMMARY | 2024-12-19 13:29 | XMS_ITS | Encounter Summary ---
Author Organization [employer] Address [address] [facility] 7t [place] [address] Care Team Providers Care Project Development Manager Name Role Phone Niki Walker Primary Care Provider [phone] Reason for Visit * Reason Comments Med Refill Encounter Details Date Type Department Care Team ([facility] st Contact Info) Description 09/03/2024 Refill [facility] MEDICINE [address] [place] [address] Niki Walker FNP [address] [place] [address] Social History Tobacco Use Types Packs/Day Years [...] Description 02/23/2025 1:45 PM EST Office Visit [facility] MED & PEDS [address] [place] [address] Niki Walker FNP [address] [place] [address] documented as of this encounter Visit Diagnoses Not on filedocumented in this encounter Additional Health Concerns Assessment Noted Time PHQ-9 Depression Total Score: 0 08/21/19 23 10:26 AM EDT documented as of this encounter Care Teams Project Development Manager Relationship Specialty Start Date End Date Niki Walker FNP [address] [place] [address] PCP - General Family Medicine 11/25/21 documented as of this encounter
--- OUTSIDE RECORDS SUMMARY | 2024-12-19 13:29 | XMS_ITS | Encounter Summary ---
Author Organization [employer] Address 75 [facility] 7t [place] [address] Care Team Providers Care Chief Operator Lock Tender Name Role Phone Niki Walker NYDIA Primary Care Provider [phone] Encounter Details Date Type Department Care Team [...] Description 02/23/2025 1:45 PM EST Office Visit [facility] MED & PEDS [address] [place] [address] Niki Walker FNP [address] [place] [address] documented as of this encounter Visit Diagnoses Not on filedocumented in this encounter Additional Health Concerns Assessment Noted Time PHQ-9 Depression Total Score: 0 12/16/19 25 4:32 PM EST documented as of this encounter Care Teams Chief Operator Lock Tender Relationship Specialty Start Date End Date Niki Walker FNP [address] [place] [address] PCP - General Family Medicine 11/25/21 documented as of this encounter
--- OUTSIDE RECORDS SUMMARY | 2024-12-19 13:29 | XMS_ITS | Encounter Summary ---
Author Organization [employer] Address [address] [facility] 7t [place] [address] Care Team Providers Care Cooper Apprentice Name Role Phone Niki Walker Primary Care Provider [phone] Encounter Details Date Type Department Care Team (Late Contact Info) Description 06/26/2022 Orders Only [facility] MEDICINE [address] [place] [address] Luz Maria Gaming LPN Social History Tobacco [...] Description 02/23/2025 1:45 PM EST Office Visit [facility] CH[facility] MED & PEDS [address] [place], [place] [phone] Niki Walker FNP [address] [place] [address] documented as of this encounter Visit Diagnoses Not on filedocumented in this encounter Care Teams Cooper Apprentice Relationship Specialty Start Date End Date Niki Walker FNP [address] [place] [address] PCP - General Family Medicine 11/25/21 documented as of this encounter
--- OUTSIDE RECORDS SUMMARY | 2024-12-19 13:29 | XMS_ITS | Encounter Summary ---
Author Organization [employer] Address 75 [facility] 7t [place] [address] Care Team Providers Care Firer Locomotive Crane Name Role Phone Niki Walker Primary Care Provider [phone] Reason for Visit * Reason Onset Date Comments Chart prep 12/14/2024 Encounter Details Date Type Department Care Team ([facility] st Contact Info) Description 12/14/2024 Telephone [facility] CHC MED & PEDS [address] [place] [address] Niki Walker FNP [address] [place] [address] Chart prep Social History Tobacco Use Types [...] Upcoming Encounters Date Type Department Care Team ([facility] st Contact Info) Description 02/23/2025 1:45 PM EST Office Visit [facility] MED & PEDS [address] [place] [address] Niki Walker FNP [address] [place] [address] documented as of this encounter Visit Diagnoses Not on filedocumented in this encounter Additional Health Concerns Assessment Noted Time PHQ-9 Depression Total Score: 0 08/21/19 23 10:26 AM EDT documented as of this encounter Care Teams Firer Locomotive Crane Relationship Specialty Start Date End Date Niki Wakler FNP [address] [place] [phone] PCP - General Family Medicine 11/25/21 documented as of this encounter
--- OUTSIDE RECORDS SUMMARY | 2024-12-19 13:29 | XMS_ITS | Encounter Summary ---
Author Organization [employer] Address [address] [facility] 7t [place] [address] Care Team Providers Care Handicapped Teacher Name Role Phone Aaron Niki REPAIRER WOOD FURNITURE Primary Care Provider [phone] Encounter Details Date Type Department Care Team (Late st Contact Info) Description 11/08/2023 Orders Only [facility] CH[facility] MED & PEDS [address] [place], [place] [phone] Provider, MD Keon Social History Tobacco Use [...] Description 02/23/2025 1:45 PM EST Office Visit [facility] MED & PEDS [address] [place] [address] iNki Walker FNP [address] [place] [address] documented as of this encounter Procedures Procedure [...] documented as of this encounter Care Teams Handicapped Teacher Relationship Specialty Start Date End Date Niki Walker FNP [address] [place] [address] PCP - General Family Medicine 11/25/21 documented as of this encounter
--- OUTSIDE RECORDS SUMMARY | 2024-12-19 13:29 | XMS_ITS | Encounter Summary ---
Author Organization [employer] Address [address] [facility] 7t [place] [address] Care Team Providers Care Cardboard Inserter Name Role Phone Niki Walker Primary Care Provider [phone] Reason for Visit * Reason Comments Med Refill Encounter Details Date Type Department Care Team ([facility] st Contact Info) Description 10/08/2024 Refill [facility] MEDICINE [address] [place] [address] Niki Walker FNP [address] [place] [address] Social History Tobacco Use Types Packs/Day Years Used Date Smoking Tobacco: Never Smokeless Tobacco: Never Alcohol Use Standard Drinks/Week Comments Never 0 (1 standard drink = 0.6 oz pur e alcohol) Depression Answer Date Recorded Patient Health Questionnaire-9 Score 0 08/20/2022 Housing Stability Answer Date Recorded What is your housing situation today? I have jeannine itlley 12/04/[address] you li [...] Description 02/23/2025 1:45 PM EST Office Visit [facility] MED & PEDS [address] [place] [address] Niki Walker FNP [address] [place] [address] documented as of this encounter Visit Diagnoses Not on filedocumented in this encounter Additional Health Concerns Assessment Noted Time PHQ-9 Depression Total Score: 0 08/21/19 23 10:26 AM EDT documented as of this encounter Care Teams Cardboard Inserter Relationship Specialty Start Date End Date Niki Walker FNP [address] [place] [address] PCP - General Family Medicine 11/25/21 documented as of this encounter
--- OUTSIDE RECORDS SUMMARY | 2024-12-19 13:29 | XMS_ITS | Encounter Summary ---
Author Organization [employer] Address [address] [facility] 7t [place] [address] Care Team Providers Care Cassandra Developer Name Role Phone Niki Walker Primary Care Provider [phone] Encounter Details Date Type Department Care Team (Late st Contact Info) Description 01/29/2022 Orders Only [facility] [address] [place] [address] Luz Maria Gaming LPN Social History Tobacco [...] Description 02/23/2025 1:45 PM EST Office Visit [facility] MED & PEDS [address] [place] [address] Niki Walker FNP [address] [place] [address] documented as of this encounter Procedures Procedure Name Priority Date/Time Associated Diagnosis Comments URINALYSIS WITH REFLEX MICROSCOPIC Routine 05/26/2022 11:39 PM EDT documented in this encounter Results * Urinalysis with reflex microscopic (05/26/2022 11:39 PM EDT) Color Urine Yellow [facility] Appearance Urine Clear [facility] PH 7.0 5.0 - 9.0 [facility] Glucose Urine UA Negative Negative mg/dL [facility] Urine Blood Negative Negative [facility] Specific [place] - Urine <=1.005 1.005 - 1.025 [facility] Urine Protein Negative Neg-Trace mg/dL [facility] Urine Ketones Negative Negative mg/dL [facility] Nitrite Urine Negative Negative [facility] Leukocyte Esterase Urine Negative Negative [facility] 05/26/2022 11:3 9 PM EDT 05/26/2022 11:43 PM EDT Narrative [facility] - 05/26/2022 11:47 PM EDT [id number], Clean Catch [facility] External Provider LAB URI NE ORDERABLES Final Result Performing Organization Address City/State/[facility] Co de Phone Number [facility] [address] [place] [address] [phone] documented in this encounter Visit Diagnoses Not on filedocumented in this encounter Care Teams Cassandra Developer Relationship Specialty Start Date End Date Niki Walker FNP [address] [place] [address] PCP - General Family Medicine 11/25/21 documented as of this encounter
--- OUTSIDE RECORDS SUMMARY | 2024-12-19 13:29 | XMS_ITS | Clinical Summary ---
Author Organization [employer] Address [address] [facility] [address] [place] [address] Care Team Providers Care Operations Welder Name Role Phone BhavikNiki carias NYDIA Primary Care Provider [phone] Allergies No known active allergies Medications amLODIPine [...] PM EST): Lab Results Component Value Date [id number] 21.4 (L) 11/10/2023 - Continues with Vit [...] years (hx tubular adenoma) Dental: Referral to [facility] dental placed 06/28/23 OPH: [facility] - Dr. Conner. CEE 05/24/24 Last comprehensive review: 12/15/24 Assessment & Plan (12/21/2022 10:07 PM EST): Check STI, Due for A1c and lipid panel Coronary artery disease 06/23/2022 Assessment & Plan (12/17/2024 7:00 PM EST): - Following with [facility] - Dr. 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 Continue following with [facility] Cardiology - Dr. Simmons. History of markedly elevated BP with readings SBP 170s-180s. Pt reports it has been this way for most of his life and has been evaluated by many doctors in the past BP closer to goal today Denies any chest pain, palpitations, LOMBARDI, blurry vision, SOB, N/V/D [facility] - Dr. Conner. CEE 05/24/24 - NO [...] Description 12/15/2024 2:45 PM EST Office Visit [facility] [address] [place] [address] Niki Walker FNP Primary hypertension (Primary Dx); Hypercholesterolemia; Coronary artery disease involving [place] coronary artery of [place] heart, unspecified whether angina present; Prediabetes; Liver fibrosis; Healthcare maintenance; Vitamin D insufficiency; History of hepatitis C; Erythrocytosis; Primary insomnia; Erectile dysfunction, unspecified erectile dysfunction type 12/15/2024 Travel 12/14/2024 Telephone [facility] [address] [place] [address] Niki Walker FNP Chart prep 12/07/2024 Patient Outreach [facility] [address] [place] [address] Phalen, Niki, STRETCH BOX TENDER Pre-visit Planning (SDOH screening negative and Tobacco screening negative) 10/08/2024 Refill [facility] [address] [place] [address] Niki Walker FNP 10/03/2024 5:00 PM EDT Office Visit [facility] [address] [place] [address] Whitney Cai MD Poison danny dermatitis (Primary Dx) 10/03/2024 Travel 09/19/2024 Telephone [facility] [address] [place], [place] [phone] Niki Walker FNP from Last 3 Months [...] Description 02/23/2025 1:45 PM EST Office Visit [facility] [address] [place] [address] Niki Walker, STRETCH BOX TENDER [address] [place] [address] Health Maintenance Due Date Last Done Comments CT Colonography 1950 Dental Prophylaxis 1950 FIT DNA/Cologuard 1950 FIT 1950 FOBT 1950 Sigmoidoscopy 1950 Dental X-Ray: Bitewings 12/14/2008 12/14/2007 Dental X-Ray: Full Mouth 02/27/2019 02/27/2016 Dental Oral Exam 06/28/2024 12/29/2023, , 02/27/2016, Additional history exists Influenza Vaccine (#1) 2025 Postp oned from [...] 08/19/2016 Pos tponed from 10/14/2016 (Patient Refused) Diabetes: Hemoglobin A1C 12/18/2025 025, 06/29/2023, 12/22/2022, Additional history exists Colonoscopy 03/17/2026 03/17/2023 Colorectal Cancer Screening 03/17/2026 DTaP/Tdap/Td Vaccines (3 - Td or Tdap) 01/14/2028 01/13/2018, 03/07/2013 Lipid Panel 12/18/2029 12/18/2024, 10/0 03/2023, 06/29/2023, Additional history exists HIB Vaccines Aged Out [...] Procedure Name Priority Date/Time Associated Diagnosis Comments PSA, TOTAL Routine 12/18/2024 1:32 PM EST Healthcare maintenance VITAMIN D,25-OH,TOTAL,IA Routine 12/18/2024 1:32 PM EST Healthcare maintenance Vitamin D insufficiency CBC WITH AUTO DIFFERENTIAL Routine 12/18/2024 1:32 PM EST Healthcare maintenance COMPREHENSIVE METABOLIC PANEL Routine 12/18/2024 1:32 PM EST Healthcare maintenance TSH W/REFLEX TO FT4 Routine 12/18/2024 1 :32 PM EST Healthcare maintenance HEMOGLOBIN A1C Routine 12/18/2024 1:32 PM EST Healthcare maintenance LIPID PANEL, STANDARD Routine 12/18/2024 1:32 PM EST Healthcare maintenance PERIODIC ORAL EVALUATION - ESTABLISHED PATIENT Routine 12/29/2023 11:00 AM EST HM COLONOSCOPY Routine 03/17/2023 10:13 PM EST PANORAMIC RADIOGRAPHIC IMAGE Routine 02/27/2016 12:00 AM EST BITEWINGS - 2 RADIOGRAPHIC IMAGES Routine 12/14/2007 12:00 AM EST from Last 3 Months or Most Recently Relevant to Health Maintenance Results * Vitamin D, 25-Hydroxy, Total, Immunoassay (12/18/2024 1:32 PM EST) Vitamin D 25-OH Total 71.2 >30 ng/mL [facility] Comment: Health Based Reference Values*< 20 ng/mL [id number] ng/mL Insufficient> 30 ng/mL Sufficient*Raghu TAYLOR. N [...] PM EST 12/18/2024 3:57 PM EST Niki Bhavikjv [facility] BLOOD ORDERABLES Final Res ult Performing Organization Address [facility] Co de Phone Number [facility] [address] [place] [phone] * TSH with Reflex to Free T4 (12/18/2024 1:32 PM EST) TSH reflex Free T4 1.36 0.32 - 4.0 uIU/mL [facility] Blood 12/18/2024 1:32 PM EST 12/18/2024 3:57 PM EST Niki Walker [facility] BLOOD ORDERABLES Final Res ult Performing Organization Address [facility]/ZIP Co de Phone Number [facility] [address] [place] [phone] * (ABNORMAL) CBC auto differential (12/18/2024 1:32 PM EST) White Blood Count 6.6 4.8 - 10.8 X10*3/uL [facility] Red Blood Count 4.71 4.60 - 5.80 X10*6/uL [facility] Hemoglobin 13.3(L) 14.0 - 18.0 g/dl [facility] Hematocrit 42.7 42.0 - 52.0 % [facility] Mean Corpuscular Volume 90.7 80.0 - 98.0 fL [facility] Mean Corpuscular Hemoglobin 28.2 27.0 - 33.0 pg [facility] Mean Corpuscular HGB Conc 31.1 31.0 - 36.0 g/dl [facility] Red Cell Distribution Width 13.4 11.0 - 16.0 % [facility] Platelet Count 208 160 - 400 X10*3/uL [facility] Mean Platelet Volume 12.0 9.4 - 12.4 fL [facility] Neutrophils Percent Auto 51.5 45 - 73 % [facility] Imm Gran Pct Auto 0.3 0.0 - 0.4 % [facility] Lymphocytes Percent Auto 28.5 20 - 40 % [facility] Monocytes Percent Auto 17.7(H) 2 - 11 % [facility] Eosinophils Percent Auto 1.5 0 - 4 % [facility] Basophils Percent Auto 0.5 0 - 2 % [facility] NRBC Pct Auto 0.0 0.0 - 0.2 /100WBC [facility] Neutrophils Absolute Auto 3.4 2.0 - 8.3 x10*3/uL [facility] Imm Gran Abs Auto 0.02 0.00 - 0.03 X10*3/uL [facility] Lymphocytes Absolute Auto 1.9 1.2 - 4.9 X10*3/uL [facility] Monocytes Absolute Auto 1.2 0.1 - 1.2 X10*3/uL [facility] Eosinophils Absolute Auto 0.1 0.0 - 0.4 X10*3/uL [facility] Basophils Absolute Auto 0.0 0.0 - 0.2 X10*3/uL [facility] NRBC Abs Auto 0.000 0.0 - 0.012 X10*3/uL [facility] Blood Venous blood specimen / Unknown 12/18/2024 1:32 PM EST 12/18/2024 3:57 PM EST us Niki Walker [employer] LAB BLOOD ORDERABLES Final Res ult Performing Organization Address City/[facility]/ZIP Co de Phone Number [facility] [address] [place] [phone] * PSA,Total (12/18/2024 1:32 PM EST) Prostate Specific Antigen 0.55 <0.05 - 4.0 ng/mL [facility] Comment:PSA methodology: Abb eliza Alinity i ChemiluminescentMicroparticle Immunoassay (CMIA) Blood Venous blood specimen / Unknown 12/18/2024 1:32 PM EST 12/18/2024 3:57 PM EST Niki Gutierresjv [facility] BLOOD ORDERABLES Final Res ult Performing Organization Address [facility] Co de Phone Number [facility] [address] [place] [phone] * Hemoglobin A1c (12/18/2024 1:32 PM EST) Hemoglobin A1c 6.0 <6.0 % [facility] Comment:Hemoglobin A1C Refer ence Range Adults: 4.8 - 6.0 % Non diabetic: < 6.0 % Goal: < 7.0 %Additional Action Suggested: > 8.0 %Note: Hemoglobin A1c results are invalid for patients with abnormal amounts of HbF. Blood transfusions may impact the HbA1c concentration in the patient sample. Estimated Average Glucose 126 mg/dL [facility] Comment:eAG = Estimated ave rage glucose which is %A1C expressed asaverage glucose, using the formula of the F6E-[id number] Glucose study (ADAG), Diabetes Care, Vol.31,#8,Sep. 2007 Blood Venous blood specimen / Unknown 12/18/2024 1:32 PM EST 12/18/2024 3:57 PM EST Niki Walker [facility] BLOOD ORDERABLES Final Res ult Performing Organization Address [facility]/ZIP Co de Phone Number [facility] [address] [place] [phone] * (ABNORMAL) Lipid Panel, Standard (12/18/2024 1:32 PM EST) Triglycerides 75 <150 mg/dL [facility] Comment:Desirable Triglyceri de: less than 150 mg/dLBorderline High Triglyceride 150-199 mg/dLHigh Triglyceride: 200-499 mg/dLVery High Triglyceride: greater than or equal to 5OO mg/dL Cholesterol 105 <200 mg/dL [facility] Comment:Desirable Cholestero l: less than 200 mg/dLBorderline High Cholesterol: 200-239 mg/dLHigh Cholesterol: greater than 239 mg/dL LDL Cholesterol Calculated 56 <100 mg/dL [facility] Comment:Desirable LDL: less than 100 mg/dLNear Optimal/Above Optimal LDL: 110- 129 mg/dLBorderline High LDL: 130-159 mg/dLHigh LDL: 160-189 mg/dLVery High LDL: greater than or equal to 190 mg/dL HDL Cholesterol 34(L) >40 mg/dL [facility] Comment:Desirable HDL: great er than 40 mg/dL Note: This HDL assay may give artificially low results in patients with liver disease. Blood Venous blood specimen / Unknown 12/18/2024 1:32 PM EST 12/18/2024 3:57 PM EST us Niki Walker STRET[employer] BOX T[employer]ER LAB BLOOD ORDERABLES Final Res ult [facility] [address] [place] [phone] * (ABNORMAL) Comprehensive Metabolic Panel (12/18/2024 1:32 PM EST) Sodium 143 135 - 145 mmol/L [facility] Potassium 4.3 3.3 - 5.1 mmol/L [facility] Chloride 106 96 - 108 mmol/L [facility] Carbon Dioxide 28 22 - 29 mmol/L [facility] Anion Gap 13 12 - 20 [facility] Urea Nitrogen (BUN) 8(L) 9 - 16 mg/dL [facility] Creatinine, Serum 0.98 0.5 - 1.4 mg/dL [facility] Estimated Glomerular Filt Rate >60 [facility] Comment:Chronic Kidney Disea se: Estimated GFR < 60 mL/min/[id number] Kidney Disease: Estimated GFR < 15 mL/min/1.73m2 Glucose 100 60 - 115 mg/dL [facility] Calcium 9.6 8.4 - 10.2 mg/dL [facility] Bilirubin, Total 0.5 0.0 - 1.0 mg/dL [facility] Aspartate Amino Transferase 30 5 - 37 U/L [facility] Alanine Aminotransferase 24 0 - 40 U/L [facility] Total Protein 7.5 6.5 - 8.0 g/dL [facility] Albumin Level 4.5 3.5 - 5.0 g/dL [facility] Alkaline Phosphatase 73 39 - 117 U/L [facility] Blood Venous blood specimen / Unknown 12/18/2024 1:32 PM EST 12/18/2024 3:57 PM EST Niki Walker [employer] LAB BLOOD ORDERABLES Final Res ult [facility] [address] [place] [phone] * Hm Colonoscopy (03/17/2023 10:13 PM EST) Historical Provider HEALTH MAINTENANCE Final Result from Last 3 Months or Most Recently Relevant to Health Maintenance Insurance MEDICARE [facility] STANDARD DENTAL - HSN FULL (MEDICAID) Care Teams Operations Welder Relationship Specialty Start Date End Date Niki Walker FNP [address] [place] [address] PCP - General Family Medicine 11/25/21
--- OUTSIDE RECORDS SUMMARY | 2024-12-19 13:29 | XMS_ITS | Encounter Summary ---
Author Organization [employer] Address [address] [facility] [address] [place] [address] Care Team Providers Care Bulk Plant Agent Name Role Phone iNki Walker Primary Care Provider [phone] Reason for Visit * Reason Comments Med Refill Encounter Details Date Type Department Care Team (Late st Contact Info) Description 01/29/2022 Refill [facility] [address] [place] [address] Niki Walker FNP [address] [place] [address] Social History Tobacco Use Types Packs/Day Years [...] was placed to Pharmacy, Spoke to Jes Software Technical Lead. Jes agreeable to remove Brilinta 90 mg Tab from med profile and will send Rosuvastatin Calcium (Crestor) 40 mg tab to [employer]. documented in this encounter Plan of Treatment Upcoming Encounters Date Type Department Care Team (Late st Contact Info) Description 02/23/2025 1:45 PM EST Office Visit [facility] [address] [place] [address] Niki Walker FNP [address] [place] [address] documented as of this encounter Visit Diagnoses Not on filedocumented in this encounter Care Teams Bulk Plant Agent Relationship Specialty Start Date End Date Niki Walker FNP [address] [place] [phone] PCP - General Family Medicine 11/25/21 documented as of this encounter
--- OUTSIDE RECORDS SUMMARY | 2024-12-19 13:29 | XMS_ITS | Patient Health Record ---
Author Organization [facility] Address [address] [place] [address] Care Team Providers Care Software Developer Intern Name Role Phone Whitney Cai MD Primary Care Provider Kym Richard Payne Unavailable [phone] Allergies No Known Allergies Reason For Referral No Information Medications Medication SIG (Take, Route, Frequency, Duration) Notes Start Date End Date Status amLODIPine Besylate 2.5 MG as directed O ral twice a day Active Aspirin 81 81 MG 1 tablet Orally Once a day Active traZODone HCl 100 MG 1 tablet at bedtime Orally Once a day Active hydroCHLOROthiazide 25 MG 1 tablet in th e morning Orally Once a day Active Immunizations Vaccine Route Administration Date Status Comme nts Influenza Unknown 07/27/2018 Refused Influenza Unknown 12/16/2022 Refused Influenza Unknown 06/07/2024 Refused Social History Tobacco Use: Social History Observation Description Date Details (start date - stop date) Former Smoker NA - NA Tobacco Use/Smoking Question Answer Notes Patient is a former smoker How long has it been since you last smoked? 1-5 years Section Notes: 10 cigarettes a day; no alco hol 10 cigarettes a day; no alco hol 10 cigarettes a day; no alco hol Nonsmoker since 2014; no alc ohol Nonsmoker since 2014; no alc ohol Nonsmoker since 2014; no alc ohol Problems Problem Type SNOMED Code ICD Code Onset Dates Problem Status W/U Status Risk Notes Problem Screening for malignant neoplasm of colon (601066505) Encounter for screening for malignant neoplasm of colon (Z12.11) Active confirmed Problem Diverticular disease of colon (925249218) Diverticulosis of large intestine without perforation or abscess without bleeding (K57.30) Active confirmed Problem Chronic hepatitis C (689041192) Chronic hepatitis C without hepatic coma (B18.2) Active confirmed Problem History of adenomatous polyp of colon (067455495) Hx of adenomatous colonic polyps (Z86.010) Active confirmed Problem History of hepatitis C (26010071149366) History of hepatitis C (Z86.19) Active confirmed Problem Hepatic fibrosis (disorder) (05380464) Liver fibrosis (K74.0) Active confirmed Problem Hepatic fibrosis (disorder) (03075913) Liver fibrosis (K74.00) Active confirmed Vital Signs Temperature 97.8 degrees Fahrenheit 06/07/2024 Blood pressure diastolic 01 mm Hg 06/07/2024 Height 70 in 06/07/2024 Blood pressure systolic 001 mm Hg 06/07/2024 Weight 148.4 lbs 06/07/2024 BMI 21.29 kg/m2 06/07/2024 Encounters Encounter Location Date Provider Diagnosis [facility] [address] [place] [address] 06/07/2024 Richard Lu Hx of adenomatous colonic polyps Z86.010 ; Liver fibrosis K74.0 ; Chronic hepatitis C without hepatic coma B18.2 and Encounter for screening for malignant neoplasm of colon Z12.11 Assessments Encounter Date Diagnosis (ICD Code) Assessment Notes Treatment Notes Treatment Clinical Notes Section Notes 06/07/2024 Hx of adenomatous colonic polyps (ICD-10 - Z86.010) Overall, Sukhdeep appears well. I did review the findings on the most recent colonoscopy from just about 1 year ago. I advised him that I would recommend a follow-up colonoscopy for further screening in 2026. Given no worrisome or new GI symptoms I do not think it needs to be done any earlier than that. I did review his ultrasound findings and lab work from 2022 in regard to the previous hepatitis C. I did recommend a follow-up abdominal ultrasound and laboratories including an alpha-fetoprote in level for further follow-up in regard to his chronic liver disease. I did review with him that even though the hepatitis C has been eradicated we would still recommend follow-up studies given the theoretical slightly increased risk of liver cancer. I did advise him to certainly let me know if he changes his mind. However, Sukhdeep did not want to schedule an ultrasound or blood work at this time for that despite my recommendation. At this point, if things remain stable I will plan to just see him in 2026 for a follow-up colonoscopy. I did advise him to certainly call me he has any problems or questions I can be of assistance with in the interim. Sukhdeep was comfortable with this plan. Thank you again for allowing me to participate in Sukhdeep's care. I shall continue to keep you advised of his progress. 06/07/2024 Liver fibrosis (ICD-10 - K74.0) Overall, Sukhdeep appears well. I did review the findings on the most recent colonoscopy from just about 1 year ago. I advised him that I would recommend a follow-up colonoscopy for further screening in 2026. Given no worrisome or new GI symptoms I do not think it needs to be done any earlier than that. I did review his ultrasound findings and lab work from 2022 in regard to the previous hepatitis C. I did recommend a follow-up abdominal ultrasound and laboratories including an alpha-fetoprote in level for further follow-up in regard to his chronic liver disease. I did review with him that even though the hepatitis C has been eradicated we would still recommend follow-up studies given the theoretical slightly increased risk of liver cancer. I did advise him to certainly let me know if he changes his mind. However, Sukhdeep did not want to schedule an ultrasound or blood work at this time for that despite my recommendation. At this point, if things remain stable I will plan to just see him in 2026 for a follow-up colonoscopy. I did advise him to certainly call me he has any problems or questions I can be of assistance with in the interim. Sukhdeep was comfortable with this plan. Thank you again for allowing me to participate in Sukhdeep's care. I shall continue to keep you advised of his progress. 06/07/2024 Chronic hepatitis C without hepatic coma (ICD-10 - B18.2) Overall, Sukhdeep appears well. I did review the findings on the most recent colonoscopy from just about 1 year ago. I advised him that I would recommend a follow-up colonoscopy for further screening in 2026. Given no worrisome or new GI symptoms I do not think it needs to be done any earlier than that. I did review his ultrasound findings and lab work from 2022 in regard to the previous hepatitis C. I did recommend a follow-up abdominal ultrasound and laboratories including an alpha-fetoprote in level for further follow-up in regard to his chronic liver disease. I did review with him that even though the hepatitis C has been eradicated we would still recommend follow-up studies given the theoretical slightly increased risk of liver cancer. I did advise him to certainly let me know if he changes his mind. However, Sukhdeep did not want to schedule an ultrasound or blood work at this time for that despite my recommendation. At this point, if things remain stable I will plan to just see him in 2026 for a follow-up colonoscopy. I did advise him to certainly call me he has any problems or questions I can be of assistance with in the interim. Sukhdeep was comfortable with this plan. Thank you again for allowing me to participate in Sukhdeep's care. I shall continue to keep you advised of his progress. 06/07/2024 Encounter for screening for malignant neoplasm of colon (ICD-10 - Z12.11) Repeat colonoscopy in 2026 Overall, Sukhdeep appears well. I did review the findings on the most recent colonoscopy from just about 1 year ago. I advised him that I would recommend a follow-up colonoscopy for further screening in 2026. Given no worrisome or new GI symptoms I do not think it needs to be done any earlier than that. I did review his ultrasound findings and lab work from 2022 in regard to the previous hepatitis C. I did recommend a follow-up abdominal ultrasound and laboratories including an alpha-fetoprote in level for further follow-up in regard to his chronic liver disease. I did review with him that even though the hepatitis C has been eradicated we would still recommend follow-up studies given the theoretical slightly increased risk of liver cancer. I did advise him to certainly let me know if he changes his mind. However, Sukhdeep did not want to schedule an ultrasound or blood work at this time for that despite my recommendation. At this point, if things remain stable I will plan to just see him in 2026 for a follow-up colonoscopy. I did advise him to certainly call me he has any problems or questions I can be of assistance with in the interim. Sukhdeep was comfortable with this plan. Thank you again for allowing me to participate in Suhkdeep's care. I shall continue to keep you advised of his progress. Plan Of Treatment Pending Test Test Name Order Date BUN 03/18/2013 CREATININE 03/18/2013 LIVER PROFILE 11/26/2014 LIVER PROFILE 03/21/2014 LIVER PROFILE 07/27/2018 LIVER PROFILE 05/23/2014 LIVER PROFILE 04/13/2014 LIVER PROFILE 12/16/2022 CBC w DIFF 12/16/2022 CBC w DIFF 11/26/2014 CBC w DIFF 03/21/2014 CBC w DIFF 04/13/2014 ALPHA-FETOPROTEIN,TUMOR MARKER 3 ALPHA-FETOPROTEIN,TUMOR MARKER 9 ALPHA-FETOPROTEIN,TUMOR MARKER 5 HEPATITIS C VIRAL LOAD 04/13/2014 HEPATITIS C VIRAL LOAD 12/16/2022 HEPATITIS C VIRAL LOAD 11/26/2014 HEPATITIS C VIRAL LOAD 05/23/2014 HEPATITIS C VIRAL LOAD 03/21/2014 MRI ABD W&WO CONTRAST 03/18/2013 US LEG LT VENOUS DOPPLER 05/29/2014 FIBROSPECT SM II 03/21/2014 HCV LIVER FIBROSIS, FIBRO TEST 3 US abdomen comp w elastography 3 Future Test Test Name Order Date COLONOSCOPY 02/21/2013 COLONOSCOPY 07/27/2018 COLONOSCOPY 12/16/2022 Insurance Providers Payer Name Payer Address Payer Phone Subscriber Number Group Number Insured Name Patient Relationship to Insured Coverage Start Date Coverage End Date MEDICARE OF [place] [address] [facility] [place] [address] [id number] SUKHDEEP LANG Self - patient is the insured MEDICAID OF [facility] [address] [place] [address] [id number] SUKHDEEP LANG Self - patient is the insured Medical (General) History Medical History History ICD Code Colonoscopy in April of 2013 with removal of a small tubular adenoma, as well as the finding of some sigmoid diverticulosis and small internal hemorrhoids Colonoscopy 10-18-2009--1 sma ll tubular adenoma with high grade dysplasia removed 1 small tubular adenoma removed in 2004 chronic hepatitis C--liver b x in 2003 with a Gr 2/4 hepatitis and Stage II/IV--Genotype 1--neg MRI of liver in 2009 wih an AFP of 11.4--he had a negative MRI of his liver in March 2013 for evaluation of alpha-fetoprotein level of 9.4 in February of 2013--a liver profile in February of 2013 showed an AST of 44 and ALT of 40, with albumin of 3.9, total bilirubin of 1.5, and a direct bilirubin of 0.8--CBC showed a white count of 3.7, hemoglobin 18.8, and platelet count 139,000--his PT with INR were normal. Treated with 8 weeks of Harvoni in 2014. Nondetectable Hep C viral load in 08/2017 Denies DM,CVA,Lung disease,renal disease HTN Anxiety Myocardial infarction with a stent chris kumar an episode of COVID in approx 2020 Colonoscopy 08/2018 with several tubular adenomas removed Screening colonoscopy in Mar ru2023 with removal of several tubular adenomas. The procedure was somewhat difficult due to a lot of coughing during the procedure. Surgical History Surgery Date(Month/Year) knee surgery-right back surgery
[2024-12-19 14:25] LABS: CT PCR Urine NOT DETECTED (Not Detect.); Microalbum/Creatinine Ratio Ur 10.4 ug/mg cr (<30); NG PCR Urine NOT DETECTED (Not Detect.)
== END 2024-12-19 11:16 | disposition home or self-care (01) ==
LOC: HO.HHCL 11:15
PROVIDERS: PCP Registered Nurse; Visit Provider Registered Nurse
DX: Z00.00 Encounter for general adult medical examination without abnormal findings (principal); Z20.2 Contact with and (suspected) exposure to infections with a predominantly sexual mode of transmission
CPT/HCPCS: 82043; 82570; 87491; 87591